=== PATIENT | female | born 1985 | race Caucasian/White ===

== ENCOUNTER → 2017-08-31 11:28 | Outpatient (CLI) | payer SELFPAY ==
[2017-09-02 13:00] LABS: HPV Reflexed? NOT INDICATED
== END ==
PROVIDERS: Visit Provider Obstetrics & Gynecology
DX: Z12.4 Encounter for screening for malignant neoplasm of cervix (principal)
CPT/HCPCS: 88175; G0145

== ENCOUNTER 2020-08-13 19:35 | Emergency (ER) | payer OTHER, SELFPAY ==
[2020-08-13 19:37] VITALS: BP 151/87; PULSE 117; RESP 18; TEMP 36.6; O2SAT 95; BMI 37.8
--- NOTE | 2020-08-13 20:21 | EDS_ITS ---
HPI History of Present Illness Chief Complaint: Abn Labs Informant: patient and spouse/S.O. Onset/Context/Timing Onset: Weeks (2) Context: Gradual Onset Timing: Continuous Quality: Weak, tired, and dizzy Location: Generalized Relieved by: Nothing Associated Symptoms Associated Symptoms: Nausea, sore throat Narrative Narrative: Patient presents with weakness and fatigue that is been getting worse over the past 2 weeks. Patient states she went to her primary care physician today who did blood work. Patient had a white blood cell count of 2.2. Patient was then referred to the emergency department. Patient has an appoint with Dr. Lui tomorrow at 3 PM. Patient states her symptoms got worse after taking a maximilk supplement to help with her . [facility] Medical History Kidney stone Home Medications Ulm492/Iron/FA/Om3/Dha/Epa 1 tab PO DAILY 02/20/13 [History Last Taken 12/09/15 20:00] Ca carb-Ca gluc-Mg ox-Mg gluco [Calcium Magnesium] 1 tab PO DAILY 08/13/20 [History Last Taken Unknown] Lactobacillus acidophilus [Probiotic] 10,000 mmu cells PO DAILY 08/13/20 [History Last Taken Unknown] Allergy/AdvReac Type Severity Reaction Status Date / Time No Known Allergies Allergy Verified 08/13/20 19:39 Surgical History History of appendectomy History of cholecystectomy Social History Smoking Status: Never smoker ROS ROS ED Constitutional Constitutional ED: Reports chills and subjective; Denies fever(s) Eyes Eyes: Denies blurry vision or change in vision ENT ENT ED: Reports sore throat; Denies rhinorrhea Cardiovascular Cardiovascular: Denies chest pain or palpitations Respiratory/Chest Respiratory/Chest: Denies cough or dyspnea Gastrointestinal Gastrointestinal: Reports nausea; Denies vomiting Genitourinary Genitourinary ED: Denies dysuria or hematuria Musculoskeletal Musculoskeletal: Reports neck pain; Denies back pain Integumentary Denies abscess or rash Neurologic Neurologic: Reports weakness; Denies headache(s) Allergic/Immunologic Allergic/Immunologic ED: Denies mouth swelling or urticaria EXAM Physical Exam Const Vital Signs: 08/13/20 19:37 08/13/20 19:58 08/13/20 22:15 Temperature 97.9 F Temperature Source Temporal Pulse Rate 117 H 110 H Respiratory Rate 18 16 Respiratory Effort Normal Non-Labored Respiratory Pattern Normal Blood Pressure 151/87 H 130/59 H Blood Pressure Mean 108 82 Pulse Ox 95 97 Oxygen Delivery Method Room Air Positive well nourished and well developed General Appearance ED: well developed Neck supple and no JVD Resp normal respiratory effort and clear to auscultation bilaterally Cardio regular rate and regular rhythm GI normal to inspection, nondistended, normoactive bowel sounds and non-tender Palpation: soft Neuro oriented x3, CN's II-XII intact bilaterally and no sensory deficits noted Sensorium / Orientation: alert Motor Exam: strength 5/5 throughout Psych mental status grossly normal MDM MDM MDM Narrative Medical decision making narrative: Comprehensive metabolic profile was obtained and was essentially within normal limits. Urinalysis does not show any evidence of urinary tract infection. Bottineau test was negative. COVID-19 rapid antigen was obtained and was negative. Influenza swabs were negative. Portable 1 view chest x-ray was obtained. On my interpretation, lung crockett are clear. There is normal cardiac silhouette. Bony thorax is normal. There is no acute process noted. Radiologist also interpreted the x-ray and agrees. Lab Data Attestation: I reviewed the patient's lab results. Labs: Laboratory Results - last 24 hr 08/13/20 08/13/20 08/13/20 20:55 20:55 21:30 Sodium 140 Potassium 3.8 Chloride 106 Carbon Dioxide 28.0 Anion Gap 6 BUN 18 Creatinine 0.76 Estim Creat Clear Calc 81.71 Est GFR (MDRD) Af Amer 112 Est GFR (MDRD) Non-Af 92 BUN/Creatinine Ratio 23.7 H Glucose 83 Calcium 9.0 Total Bilirubin 0.40 AST 39 H ALT 47 Alkaline Phosphatase 75 Total Protein 8.0 Albumin 3.7 Globulin 4.3 H Albumin/Globulin Ratio 0.9 Urine Color Yellow Urine Clarity Clear Urine pH 6.5 Ur Specific Heppner 1.010 Urine Protein 15 H Urine Glucose (UA) Normal Urine Ketones 50 H Urine Occult Blood Negative Urine Nitrite Negative Urine Bilirubin Negative Urine Urobilinogen Normal Ur Leukocyte Esterase Negative Urine RBC 0 SEEN Urine WBC 0 SEEN Ur Squamous Epith Cells 0 SEEN Urine Bacteria 0 SEEN Urine Mucus 0 SEEN Monoscreen Negative Radiography Chest X-Ray - ED: 1 View, Read by ED Physician, Read by Radiologist and Normal Diagnostic Testing: Radiology Impression Chest X-Ray 08/13/20 20:40 IMPRESSION: No radiographic evidence of acute cardiopulmonary disease. at 2059 Reported and signed by: Isaac Chamberlain MD Electronically Signed: Isaac Chamberlain MD at 20:58 EDT Tel , Service support , Discharge Plan Triage Chief Complaint: Abn Labs ED Provider: Cedric Fleming Dx/Rx/DC Orders Clinical Impression: Pancytopenia Instructions: ED Anemia, Type Not Specified (Adult) Prescriptions: No Action Fnl209/Iron/FA/Om3/Dha/Epa 1 tab PO DAILY RF: 0 Probiotic 10 billion cell Capsule 10,000 mmu cells PO DAILY RF: 0 Calcium Magnesium 500 mg calcium -250 mg Tablet 1 tab PO DAILY RF: 0 [facility] Referrals: Timothy Lui DO [STAFF PHYSICIAN] - Keep [facility] [[facility] - Disposition Disposition: Home, self care
--- NOTE | 2020-08-13 20:40 | RAD_ITS ---
HISTORY: Chills EXAMINATION/TECHNIQUE: XR Chest 1 View: Portable upright AP chest x-ray COMPARISON: None FINDINGS: LINES/DEVICES: None. LUNGS: No consolidation, edema or effusion. No pneumothorax. MEDIASTINUM AND CARDIOVASCULAR STRUCTURES: Cardiac silhouette not enlarged. Central airways and mediastinal contour are unremarkable. BONES AND SOFT TISSUES: No acute bony abnormalities. RAD/Chest 1 View (Portable) IMPRESSION: No radiographic evidence of acute cardiopulmonary disease. at 2059 Reported and signed by: Isaac Chamberlain MD Electronically Signed: Isaac Chamberlain MD at 20:58 EDT Tel , Service support ,
[2020-08-13 21:28] LABS: Internal QC Validated? YES +Cl - CLEAR BKGD; Monotest Negative (Negative)
[2020-08-13 21:34] LABS: ALB/GLOB Ratio 0.9 RATIO (0.9-2.4); AST(SGOT) 39 U/L (15-37); Alanine Aminotransfer ALT/SGPT 47 U/L (13-56); Albumin, Serum 3.7 g/dL (3.2-5.0); Alkaline Phosphatase 75 U/L (45-117); Anion Gap 6 (5-15); BUN 18 mg/dL (7-18); BUN/Creat Ratio 23.7 RATIO (10-20); Chloride 106 mmol/L (98-107); Creatinine, Serum 0.76 mg/dL (0.55-1.02); EST Glomerular Filtration Rate 92 mL/min (>60); Est Glom Filt Rate - Afr Amer 112 mL/min (>60); Estimated Creatinine Clearance 81.71 ml/min; Globulin 4.3 g/dL (2.2-4.2); Glucose 83 mg/dL (74-106); Potassium 3.8 mmol/L (3.5-5.1); Sodium Level 140 mmol/L (136-145)
[2020-08-13 21:37] LABS: Bacteria 0 SEEN /hpf (None Seen); Mucous, Urine 0 SEEN /hpf (<or=2+); Red Blood Cells-Urine 0 SEEN /hpf (0-5); Squamous Epithelial Cells - UA 0 SEEN /hpf (5-10); White Blood Cells 0 SEEN /hpf (0-5)
[2020-08-13 21:46] LABS: Color, Urine Yellow (Yellow); Glucose, Dipstick Normal (Normal); Ketone-Dipstick 50 mg/dl (Negative); Leukocyte Esterase-Dipstick Negative /ul (Negative); Nitrite-Dipstick Negative (Negative); Occult Blood-Urine Negative /ul (Negative); Protein-Dipstick 15 mg/dl (Negative); Urine Bilirubin Dipstick Negative (Negative); Urine Clarity Clear (Clear); Urine Urobilinogen Normal (Normal); Urine pH 6.5 (5.0 - 8.0)
[2020-08-13 22:15] VITALS: BP 130/59; PULSE 110; RESP 16; O2SAT 97
[2020-08-13 23:14] LABS: Hematocrit 36.1 % (37-47); Hemoglobin 11.9 g/dL (12.0-15.0); Mean Corpuscular Hgb 30.1 pg (27.0-32.0); Mean Corpuscular Volume 91.4 fL (81-99); Mean Platelet Vol. 9.5 fl (6.2-12.0); Platelet Count 108 K/mm3 (150-450); RBC Distribution Width CV 13.8 % (11.6-14.6); RBC Distribution Width SD 46.3 fl (35.1-43.9); Red Blood Count 3.95 M/mm3 (4.2-5.4)
[2020-08-13 23:15] LABS: Differential Indicated MANUAL DIFF; Metamyelocyte 1 % (0-1); Myelocyte 2 % (0-0); NRBC Flagged by Analyzer 0 % (0-5); Neutrophil-Band 2 % (0-5); Neutrophil-Segmented 39 % (47-70); POSITIVE COUNT YES; POSITIVE DIFFERENTIAL YES; POSITIVE MORPHOLOGY YES
[2020-08-13 23:16] LABS: Blast 9 % (0-0); Eosinophil 1 % (0-5); Monocyte 2 % (0-10)
[2020-08-13 23:17] LABS: Lymphocyte 44 % (19-41)
[2020-08-13 23:18] LABS: Platelet Estimate MOD DEC (ADEQ); Red Cell Morphology NORM C+C NORMAL (NORM C&C)
[2020-08-13 23:19] LABS: Absolute Lymphocyte Count 0.88 X10^3/uL (0.83-4.51); Absolute Neutrophil Count 0.8 X10^3/uL (2.0-7.7)
[2020-08-13 23:34] VITALS: BP 132/75; PULSE 112; RESP 15; O2SAT 97
[2020-08-14 14:15] LABS: Pathologist Review Reviewed
== END 2020-08-13 23:36 | disposition home or self-care (01) ==
PROVIDERS: Emergency Provider Emergency Medicine
DX: D61.818 Other pancytopenia (principal)
CPT/HCPCS: 71045; 80053; 81001; 85025; 86308; 87426; 87804; 99284; A4216

== ENCOUNTER 2020-09-29 15:00 | Inpatient (IN) | payer SELFPAY ==
[2020-09-29 15:36] VITALS: BP 106/72; PULSE 90; RESP 16; TEMP 36.7; O2SAT 98; BMI 34.0
--- NOTE | 2020-09-29 15:41 | EX.PCM.HP.RE ---
[facility] - General General Date of Admission: 09/29/20 Date of Service: 09/29/20 Chief Complaint: debility secondary to recent hemorrhagic CVA and subsequent craniotomy. HPI Narrative FAIZAN MORALES, is a 34 YO F with a PMH of obesity and nephrolithiasis who delivered a child in May of 2020. she c/o fatigue, shortness of breath and loss of appetite. Routine lab work revealed pancytopenia and 20% peripheral blasts concerning for leukemia. She was referred to Dr. Timothy Lui who referred her to [facility] for induction chemotherapy for AML. She had a Mccurdy catheter placed. On 09/06/20 she had a non-traumatic hemorrhagic CVA and had craniectomy with R temporal lobe resection and evacuation of ICH. Postoperatively she had a feeding tube but, this has been removed. She has weakness in the LUE, dysphagia and cognitive dysfunction. She was seen by PT/OT/ST post CVA and acute rehab was recommended. She was admitted to [facility] acute rehab unit on 09/29/20 for > 3 hours of therapy daily to restore function/independence to the level prior to the CVA. All paperwork from [facility] was reviewed. She had R breast pain on 09/23 and had a cardiology consult. She also had imaging of the right breast which was unremarkable. EKG showed no suspicious ischemic changes. She had a mild elevation in troponin which was thought to be likely due to anemia and demand ischemia. An limited echocardiogram was done to look at left ventricular function and the left ventricle was mildly dilated with a mildly decreased EF at 50?5%. The right ventricle was normal in size and had normal systolic function. Left ventricular function was not significantly changed from an echocardiogram done on 08/19/2020. She had loss of vision in August and was seen by an director graphics who diagnosed her with pancytopenic retinopathy. She has had BL venous US that was negative for DVT. She has not been on DVT prophylaxis due to thrombocytopenia and ICH. ST passed her for swallowing.....no MBS was sent. The PN from the leukemia service states muscular strength is equal in all extremities and no sensory deficit and on my exam upon arrival to [facility] shows Left side weakness and Left side sensory loss in the Left arm and leg. She also has a left facial droop. [facility] Medical History Kidney stone Home Medications acyclovir 400 mg PO BID 09/29/20 [History Last Taken Unknown] amlodipine 10 mg PO DAILY 09/29/20 [History Last Taken Unknown] carvedilol 25 mg PO BID 09/29/20 [History Last Taken Unknown] doxazosin 1 mg PO DAILY 09/29/20 [History Last Taken Unknown] gabapentin 300 mg PO QHS 09/29/20 [History Last Taken Unknown] lisinopril 40 mg PO DAILY 09/29/20 [History Last Taken Unknown] melatonin 3 mg PO QHS 09/29/20 [History Last Taken Unknown] midostaurin [Rydapt] 50 mg PO Q12H 09/29/20 [History Last Taken Unknown] ondansetron HCl [Zofran] 8 mg PO Q8H PRN 09/29/20 [History Last Taken Unknown] oxycodone 5 mg PO Q4H PRN 09/29/20 [History Last Taken Unknown] pantoprazole 40 mg PO BID 09/29/20 [History Last Taken Unknown] simethicone 80 mg PO TID 09/29/20 [History Last Taken Unknown] Allergy/AdvReac Type Severity Reaction Status Date / Time No Known Allergies Allergy Verified 08/13/20 19:39 Family History (Updated 09/29/20 @ 15:[address] Kaylie Howell DO) Mother Cancer Cholangiocarcinoma Hypertension Sister Cancer Leiomyosarcoma Grandfather Heart disease Uncle Cancer Hepatocellular carcinoma Grandmother Heart disease Surgical History History of appendectomy History of cholecystectomy Social History (Updated 09/29/20 @ 16:[address] Kaylie Howell DO) household members: spouse and children housing: house Smoking Status: Never smoker alcohol intake: never substance use type: does not use ROS Review of Systems ROS Unobtainable: other Details: limited due to encephalopathy and I believe a speech apraxia. was able to provide some answers to my questions. Constitutional Constitutional: Denies anorexia or chills Eyes Eyes: Reports change in vision bilateral and other Details: She is not seeing out of the R eye and tells me that everything is brown. She had no visual field cut in the left eye. Respiratory/Chest Respiratory/Chest: Denies cough or shortness of breath at rest Gastrointestinal Gastrointestinal: Reports constipation; Denies abdominal pain, nausea or vomiting Genitourinary Genitourinary: Reports other Details: urine retention Musculoskeletal Musculoskeletal: Reports muscle weakness and other Details: having spasms in the LLE ; Denies back pain Neurologic Neurologic: Reports abnormal speech, focal weakness, sensory deficit and weakness Psychiatric Psychiatric: Reports depression Hematologic/Lymphatic Hematologic/Lymphatic: Reports anemia, easy bleeding and easy bruising Vital Signs Vital Signs Vital Signs: Weight Body Mass Index (BMI) 37.8 Indicators for Scoring Admitted with or Primary Diagnosis of CVA/Stroke: Yes Hx of CVA/Stroke: Yes Modified Williams Score MRS Score at time of Evaluation: 5-Severe disability NIHSS NIHSS 1a. Level of Consciousness: Alert; keenly responsive 1b. LOC Questions: Answers neither question correctly. 1c. LOC Commands: Performs both tasks correctly. 2. Best Gaze: Normal 3. Visual: Complete hemianopia (no vision in the R eye) 4. Facial Palsy: Minor paralysis (flattened nasolabial fold, asymmetry on smiling) 5a. Left Arm: Some effort against gravity; 5b. Right Arm: No drift; arm holds 90 (or 45) degrees for full 10 seconds 6a. Left Leg: Some effort against gravity; 6b. Right Leg: No drift; leg holds 30-degree position for full 5 seconds 7. Limb Ataxia: Absent 8. Sensory: [id number] sensory loss; 9. Best Language: Severe aphasia; 10. Dysarthria: [id number]-cj-[id number] dysarthria; 11. Extinction and Inattention: No abnormality Total: 13 Physical Exam Const alert and well nourished Constitutional Narrative: ?confusion vs severe aphasia vs speech apraxia General Appearance: well developed HEENT HEENT Narrative: She has a craniectomy scar on the midline of the cerebrum and it is intact with no dehiscence and no discharge. There is no kanchan-incisional erythema or increased warmth to touch. There is a flap of bone removed from the R side of the head and there is clearly swelling of the brain present. Mouth: dry mucous membranes Eyes PERRL and EOMs intact bilaterally Eyes Narrative: No vision in the R eye. She tells me everything on the R when she closes the Left eye is brown and she is unable to make out even shapes. The sclera is anicteric and there is no conjunctival injection. Neck supple Lymph Lymphatic: no lymphadenopathy noted Resp normal respiratory effort and clear to auscultation bilaterally Cardio regular rate, regular rhythm, S1 normal heart sound, S2 normal heart sound, no murmurs, no rub and no gallops Cardio Narrative: No ectopy GI soft to palpation and non-distended GI Narrative: Normal bowel sounds. Elias catheter is present. Palpation: no hepatosplenomegaly; Negative for guarding Extremity no clubbing, cyanosis or edema Extremity Narrative: She has tenderness on the R side of the knee and there is a bruise present. No joint swelling or redness. Skin no jaundice and no petechiae Skin Narrative: many bruises which are in the healing phase......no acute bruising noted Rashes: no rashes Wounds: wounds noted Neuro Neuro Narrative: see the NIHSS scoring elsewhere in this document Psych cooperative; Negative for thought process normal Psych Narrative: Her hsuband states that she has been depressed and crying. 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 Due to recent intracerebral hemorrhage and acute myelogenous leukemia will withhold DVT prophylaxis unless she has lower extremity swelling, redness or calf pain. Follow up with leukemia service at [facility], ophthalmology, neurology, Dr. Lui and PCP following DC from [facility] AM lab including CMP, CBC, Mag and Phos Baclofen 5 mg p.o. 3 times daily for muscle spasms OxyIR 5 mg p.o. every 4 hours as needed pain 4-10 will be allowed to spend the nights with her and will allow the children to visit on Sundays. Charges/Coding Visit Charges Inpatient E&M: 61870 Init Hosp L3
--- NOTE | 2020-09-29 17:02 | NURSING ---
Patient here with on admission. Alert to self and place but has aphasia, slurred speech, with apraxia.
[2020-09-29] MEDS: oxyCODONE 5 MG Tablet PO (17:53)
--- NOTE | 2020-09-29 18:11 | REHABEVAL_ITS ---
Admission Information Primary Diagnosis:: Debility secondary to acute myelogenous leukemia and recent intracerebral hemorrhage requiring craniectomy and resection of the right temporal lobe. Status Changes from Prescreening?: No changes Identified Actual Problem List:: Bleeding, Skin Intergrity, Pain, ALteration in Cmfrt, Cognitve Impr/Memory Loss, Depression, Bowel, Constipation, Mobility Impaired, Self Care Deficit, Ineffective Communication, BP, Hypertension and Alteration- Leisure Activ. Potential Problem List:: DVT, Bleeding, Infection, UTI, Aspiration, Falls, Skin Integrity and Depression Risk of Complications DVT: LMWH and PORTIA Hose Bleeding: Monitor Lab Values, Nursing to Teach Precautions for anti-coagulation therapy., Wound, if applicable, to be assessed every shift. and Stroke patients assessed for lethargy or change in status. Infection: Clinical Staff to Monitor for S/S of infection: and S/S of infection include fever, redness, warmth, etc. Urinary Tract Infection: Monitor for frequency, burning, discomfort, or incontinence. and Nursing will obtain urine sample for urinalysis and C&S when ordered. Aspiration: Clinical staff will monitor for coughing, drooling, congestion., Speech will evaluate swallowing and dsyphasia. and Nursing will monitor patient swallowing during meals. Falls: Patient will be evaluated for Fall Precautions and Patient will be placed on Fall Precautions as indicated per protocol. Skin Breakdown: Nursing will assess skin daily using assessment tool. and Nursing will place on Skin Breakdown Precautions as indicated. Pain: Clinical staff will assess patient's pain level per protocol., Medications will be given, if needed, and the pain level reassessed. and Other methods: Massage, distraction, decrease stimulus, etc. used PRN. Plan of Care Patient requires physician specializing in physical medicine and rehab oversight to provide close medical supervision of rehab issues including: Pain Management, Sleep Problems, Bowel and Bladder, Medical and co-morbidity Management, DVT prophylaxis, Rehabilitation Leadership and Coordination of treatment team Patient needs Physical Therapy: For a minimum of 1 hour and At least 5 out of 7 days Patient needs Physical Therapy to improve:: Mobility, Strengthening, Transfers, Stretching, ROM, Endurance, Stairs, Gait and Balance Patient needs Occupational Therapy: For a minimum of 1 hour and At least 5 out of 7 days Patient needs Occupational Therapy to improve ADL's incl.: Eating, Grooming, Bathing, Dressing, Toileting, Toilet transfers, Community Reintegration, Higher functioning activities, Household tasks, Adaptive Equipment, Splinting and Other activities as determined Patient requires speech therapy: For a minimum of 1 hour and At least 5 out of 7 days Patient requires speech therapy for: Swallowing, Cognition, Language Skills and Compensatory Strategies Patient requires 24/7 Rehabilitation Nursing for: Pain Issues, Identifying and preventing risk factors, Monitoring and reporting current medical conditions, Assisting with ambulation, transfer, and all ADL's, Teaching patients about disease process and medications, Family teaching, Providing safe environment, Bowel and Bladder Issues, Skin integrity and Medication Management Patient needs Tafe Teacher/ Case Management for: Discharge Planning, Arranging Home Equipment or Services and Family Interventions Patient needs Dietary and Nutrition Services for: Adequate Nutrition, Nutritional Supplements and Nutritional Education Goals Patient will remain: free from falls and or injury at time of discharge. Patient will perform bed mobility at: MOD I level of assist. Patient will complete transfers from bed to chair at: MOD I level of assist. Patient will ambulate: 100 feet and with LRD Patient will complete upper body dressing at: MOD I level of assist. Patient will complete lower body dressing at: MOD I level of assist. Patient will complete toileting at: MOD I level of assist. Patient will perform bathing at: MOD I level of assist. Patient will complete grooming at: MOD I level of assist. Patient will complete home management skills at: MOD I level of assist. Patient will achieve: - (1 curb step) Patient will have pain level of: of 3 or less Patient's skin will: remain intact Patient will receive: adequate nutrition. Discharge Planning Pt Prognosis for Sig. Practical Improv. w/in Reasonable Time: Good Estimated Length of stay (days): 28 Anticipated D/C Destination: Home Was Preadmission Assessment Accurate?: Yes
[2020-09-29] MEDS: Baclofen 10 MG Tablet 5 MG PO ×2 (19:01→22:13)
[2020-09-29 19:30] VITALS: BP 97/57; PULSE 91; RESP 16; TEMP 37.1; O2SAT 97
[2020-09-29] MEDS: MELATONIN 3 MG TABLET PO (22:12)
[2020-09-29] MEDS: Gabapentin 300 MG Capsule PO (22:12)
[2020-09-29] MEDS: Carvedilol 25 MG Tablet PO (22:13)
[2020-09-29] MEDS: Acyclovir 200 MG Capsule 400 MG PO (22:13)
[2020-09-29] MEDS: Senna/Docusate Sodium 1 Tablet 2 TABLET PO (22:13)
[2020-09-29 23:44] LABS: Bacteria 0 SEEN /hpf (None Seen); Mucous, Urine 0 SEEN /hpf (<or=2+); Red Blood Cells-Urine 0 SEEN /hpf (0-5); Squamous Epithelial Cells - UA 0 SEEN /hpf (5-10); White Blood Cells 0 SEEN /hpf (0-5)
[2020-09-29 23:47] LABS: Color, Urine Yellow (Yellow); Glucose, Dipstick Normal (Normal); Ketone-Dipstick 5 mg/dl (Negative); Leukocyte Esterase-Dipstick Negative /ul (Negative); Nitrite-Dipstick Negative (Negative); Occult Blood-Urine Negative /ul (Negative); Protein-Dipstick 15 mg/dl (Negative); Urine Bilirubin Dipstick Negative (Negative); Urine Clarity Clear (Clear); Urine Urobilinogen Normal (Normal)
[2020-09-30 04:03] VITALS: BMI 34.0
[2020-09-30] MEDS: Baclofen 10 MG Tablet 5 MG PO ×3 (06:00→22:09)
[2020-09-30] MEDS: Pantoprazole Sodium 40 MG Tablet PO ×2 (06:00→17:40)
[2020-09-30 06:09] LABS: Hemoglobin 8.2 g/dL (12.0-15.0); Mean Corp Hgb Conc 32.8 g/dL (32-36); Mean Corpuscular Hgb 29.6 pg (27.0-32.0); Mean Corpuscular Volume 90.3 fL (81-99); Mean Platelet Vol. 9.8 fl (6.2-12.0); POSITIVE COUNT YES; POSITIVE MORPHOLOGY YES; Platelet Count 356 K/mm3 (150-450); RBC Distribution Width CV 12.8 % (11.6-14.6); RBC Distribution Width SD 40.3 fl (35.1-43.9); Red Blood Count 2.77 M/mm3 (4.2-5.4); White Blood Count 4.3 K/mm3 (4.4-11.0)
[2020-09-30 06:10] LABS: Differential Indicated MANUAL DIFF; Scan Smear per Review Criteria MANUAL DIFF
[2020-09-30 06:25] LABS: Lymphocyte 20 % (19-41); Metamyelocyte 5 % (0-1); Monocyte 10 % (0-10); Myelocyte 1 % (0-0); Neutrophil-Band 4 % (0-5); Neutrophil-Segmented 60 % (47-70); Total Cells Counted 100 (MANUAL DIFF)
[2020-09-30 06:26] LABS: Absolute Lymphocyte Count 0.86 X10^3/uL (0.83-4.51); Absolute Neutrophil Count 2.8 X10^3/uL (2.0-7.7); Platelet Estimate ADEQUATE (ADEQ); Red Cell Morphology NORM C+C NORMAL (NORM C&C)
[2020-09-30 06:37] LABS: ALB/GLOB Ratio 0.8 RATIO (0.9-2.4); AST(SGOT) 18 U/L (15-37); Alanine Aminotransfer ALT/SGPT 31 U/L (13-56); Alkaline Phosphatase 72 U/L (45-117); Anion Gap 7 (5-15); BUN 17 mg/dL (7-18); Calcium,Total 9.2 mg/dL (8.5-10.1); Chloride 106 mmol/L (98-107); Creatinine, Serum 0.55 mg/dL (0.55-1.02); EST Glomerular Filtration Rate 133 mL/min (>60); Est Glom Filt Rate - Afr Amer 161 mL/min (>60); Estimated Creatinine Clearance 112.91 ml/min; Glucose 95 mg/dL (74-106); Magnesium 2.1 mg/dL (1.6-2.6); Phosphorus 4.9 mg/dL (2.5-4.9); Potassium 3.6 mmol/L (3.5-5.1); Sodium Level 142 mmol/L (136-145)
[2020-09-30 07:30] VITALS: BP 110/60; PULSE 62; RESP 16; TEMP 36.8; O2SAT 94
[2020-09-30 10:00] VITALS: BP 110/60; BP 113/61; BP 119/60; BP 138/77; PULSE 106; PULSE 62; PULSE 78; PULSE 80; RESP 16; TEMP 36.8; O2SAT 96
--- NOTE | 2020-09-30 10:25 | NURSING ---
Addendum entered by Chely Ndiaye 09/30/20 18:49: received call from Mary Rivera pt is not to start Rydapt at this time. video conference set up for pt 10/02 @ 4538 pt and aware. Original Note: Left message for Mary Rivera at [facility] oncology to see when pt is to start Rydapt
[2020-09-30] MEDS: amLODIPine 10 MG Tablet PO (11:11)
[2020-09-30] MEDS: Lisinopril 40 MG Tablet PO (11:11)
[2020-09-30] MEDS: Carvedilol 25 MG Tablet PO ×2 (11:11→22:09)
[2020-09-30] MEDS: Doxazosin 1 MG Tablet PO (11:11)
[2020-09-30] MEDS: Acyclovir 200 MG Capsule 400 MG PO ×2 (11:12→22:10)
--- NOTE | 2020-09-30 11:41 | PCM.PN.BLA ---
Progress Note Afebrile Vital signs are stable and the blood pressure is well controlled Maintaining appropriate oxygen saturation on room air All lab was personally reviewed. The white blood cell count is 4.3 and the hemoglobin is 8.2 with platelets of 356,000. There are 5 metamyelocytes and 1 myelocyte. There were no blasts. Bone marrow just prior to discharge from [facility] was negative. CMP is remarkable for an elevated BUN/creatinine ratio at 31. UA had 0 WBCs per high-power field and 0 RBCs per high-power field. There was no bacteria. Skyla is upbeat and ready to do therapy. She denies cough, dysuria, painful swallowing, abd pain, diarrhea, nausea, CP and SOB. Physical Exam Const alert and no apparent distress General Appearance: cooperative Resp normal respiratory effort, normal air movement and clear to auscultation bilaterally Effort and Inspection: able to speak in complete sentences Cardio regular rate, regular rhythm, S1 normal heart sound, S2 normal heart sound, no murmurs and no gallops GI soft to palpation, non-tender and non-distended GI Narrative: no guarding with palpation Extremity no calf tenderness and no pedal edema Neuro Neuro Narrative: Able to tell me the month and where she is today. PERRL, EOMI. Still with poor vision due to hemorrhage into the eye due to severe thrombocytopenia. + left side weakness. Assessment & Plan Assessment/Plan (1) Debility: (2) Hemorrhagic cerebrovascular accident (CVA): (3) Status post craniectomy: (4) Retinopathy: (5) Aphasia due to acute cerebrovascular accident (CVA): (6) Apraxia of speech: (7) Left-sided muscle weakness: PLAN: 1. continue therapy 2. continue to monitor BP Visit Charges Inpatient E&M: 88653 Subs Hosp L2
[2020-09-30 12:49] LABS: Pathologist Review Reviewed
--- NOTE | 2020-09-30 12:57 | CASEMGMT ---
Social Work SW met w/pt and in room, explained that pt had been diagnosed with leukemia, went to [facility] main campus and was there for chemotherapy. While she was there she had a brain bleed, her platelets dropped. states pt almost was not here with us, but she was able to have life saving surgery, as pt's describes it. Pt had been at [facility] from August 15-September 29. Plan from here is to return home. Pt's in-laws have been staying with the children while pt has been in the hospital. Brian explains that he has been with pt every day since all of this happened with the exception of two half days. SW explained will be following along and will assist with any needed referrals for therapies and DME needs. states understanding. SERENITY Biggs
[2020-09-30 16:53] VITALS: BMI 34.0
[2020-09-30 18:00] VITALS: O2SAT 96
[2020-09-30 19:11] VITALS: BP 106/60; PULSE 87; RESP 16; TEMP 36.2; O2SAT 96
[2020-09-30] MEDS: MELATONIN 3 MG TABLET PO (22:10)
[2020-09-30] MEDS: Gabapentin 300 MG Capsule PO (22:10)
[2020-09-30] MEDS: 0.9% Saline Lock 10 ML Syringe IV (23:31)
[2020-10-01 00:32] VITALS: BMI 34.0
--- NOTE | 2020-10-01 01:37 | NURSING ---
Reviewed and agree with [employer] assessment.
[2020-10-01] MEDS: Pantoprazole Sodium 40 MG Tablet PO ×2 (06:11→16:48)
[2020-10-01] MEDS: Baclofen 10 MG Tablet 5 MG PO ×3 (06:11→21:14)
[2020-10-01 08:09] VITALS: BP 103/49; PULSE 84; RESP 16; TEMP 36.6; O2SAT 95
[2020-10-01 09:36] VITALS: BP 115/72; PULSE 90
[2020-10-01] MEDS: Doxazosin 1 MG Tablet PO (09:36)
[2020-10-01] MEDS: Lisinopril 40 MG Tablet PO (09:36)
[2020-10-01] MEDS: Carvedilol 25 MG Tablet PO ×2 (09:36→21:14)
[2020-10-01] MEDS: amLODIPine 10 MG Tablet PO (09:36)
[2020-10-01] MEDS: Acyclovir 200 MG Capsule 400 MG PO ×2 (09:39→21:15)
[2020-10-01] MEDS: Clotrimazole 10 MG Troche MUCOUS MEM ×3 (14:49→21:14)
[2020-10-01 16:04] VITALS: BMI 34.0
--- NOTE | 2020-10-01 16:37 | CHAPLAIN ---
Type of Pastoral Visit _x__ Initial Visit ___ Follow-up Visit ___ On-call Visit ___ General Patient Visit ___ Spiritual Assessment ___ Family Conference ___ Bereavement ___ Rapid Response ___ Code Blue ___ Other (describe below) Pastoral Care Referral From _x__ Patient _x__ Family ___ Nurse ___ Physician ___ Landfill Gas Collection Operator ___ Heater Helper Forge ___ Other (describe below) Sacrament/Intervention _x__ Active listening ___ Anointing ___ Restorationism ___ Bereavement ___ Communion _x__ Desiree exploration ___ ___ Life review _x__ Prayer ___ Reconciliation ___ Sacrament of Sick _x__ Supportive presence ___ Wedding ___ Other (describe below) Pastoral Comments spouse and another family member were with patient; spouse talked to this batch operator while visitor interacted with patient most of the time; spouse gives health history and updates; pt has literally had miracles when doctor in [facility] said it was time to accept her (September 05) but instead has great turn around according to spouse; pt is making good strides already in therapy; pt and spouse both state that the goal is to see their five young children soon and as much as possible; spouse states that desiree in God and the help of their [employer] have been sustaining them in these days; pt and spouse welcome spiritual care support and prayers; future visits are encouraged
[2020-10-01 19:11] VITALS: BP 109/62; PULSE 84; RESP 14; TEMP 36.6; O2SAT 98
[2020-10-01] MEDS: MELATONIN 3 MG TABLET PO (21:14)
[2020-10-01] MEDS: Gabapentin 300 MG Capsule PO (21:15)
[2020-10-01] MEDS: 0.9% Saline Lock 10 ML Syringe IV (22:40)
--- NOTE | 2020-10-02 01:26 | NURSING ---
Reviewed and agree with ELECTRIC SHOVEL OPERATOR assessment.
[2020-10-02 02:21] VITALS: BMI 34.0
[2020-10-02] MEDS: Acetaminophen 325 MG Tablet 650 MG PO (04:15)
[2020-10-02] MEDS: Clotrimazole 10 MG Troche MUCOUS MEM ×5 (06:50→21:51)
[2020-10-02] MEDS: Baclofen 10 MG Tablet 5 MG PO ×3 (06:50→21:51)
[2020-10-02] MEDS: Pantoprazole Sodium 40 MG Tablet PO ×2 (06:50→17:03)
[2020-10-02 08:50] VITALS: PULSE 75; RESP 14; TEMP 36.1; O2SAT 97
--- NOTE | 2020-10-02 09:50 | CASEMGMT ---
Social Work Team meeting held. Patient present as well as patient spouse. No discharge date set at this time. Patient to continue with further care and treatment on the Rehab Unit. Patient plans to discharge to home with spouse at time of discharge. Will continue to follow. Nara PALACIOS, SERENITY
[2020-10-02] MEDS: Carvedilol 25 MG Tablet PO ×2 (10:49→21:50)
[2020-10-02] MEDS: amLODIPine 10 MG Tablet PO (10:49)
[2020-10-02] MEDS: Doxazosin 1 MG Tablet PO (10:49)
[2020-10-02] MEDS: Lisinopril 40 MG Tablet PO (10:50)
[2020-10-02] MEDS: Acyclovir 200 MG Capsule 400 MG PO ×2 (10:50→21:52)
--- NOTE | 2020-10-02 12:06 | PN_ITS ---
Progress Note Zenia Abbott was seen on TEAM rounds today. Her Rosendo was present in the room. She remains afebrile VSS She is not tachypneic and she is maintaining appropriate oxygen saturation on RA. She is eating well and family has been bringing food from home Physical Exam Const alert and well nourished Constitutional Narrative: she is upbeat and is talking a lot with the team and her General Appearance: well developed Eyes PERRL and EOMs intact bilaterally Eyes Narrative: still having decreased visual acuity Neck supple Resp normal respiratory effort and clear to auscultation bilaterally Cardio regular rate, regular rhythm, S1 normal heart sound, S2 normal heart sound, no murmurs, no rub and no gallops Cardio Narrative: No ectopy GI soft to palpation and non-distended GI Narrative: Normal bowel sounds. Gao catheter is present. Palpation: Negative for guarding Extremity no calf tenderness and no pedal edema Extremity Narrative: She has tenderness on the R side of the knee and there is a bruise present. No joint swelling or redness. Skin Skin Narrative: many bruises which are in the healing phase......no acute bruising noted General Skin Exam: no breakdown Rashes: no rashes Wounds: wounds noted Wound Narrative: The incision on the skull is intact with no dehiscence, no purulent discharge, no serosanguineous discharge, no erythema and no increased warmth to touch. Neuro Neuro Narrative: Still with aphasia and speech apraxia. Left facial droop. Persistent weakness on the left side but, she is moving that side better than at admission. Today she was able to ambulate 20 ft from her room to the therapy room with a WW and then ambulated 65 ft once and shorter distances a few times after that. She was able to do 2 steps. She is very motivated to get better and go home. Psych cooperative Psych Narrative: smiling and very talkative with the staff. Sleeping well. 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 Voiding trial today. If she still retains urine will reinsert the gao and start Flomax. 2. continue therapy. 3. will check a CMP once a week and a CBC twice a week and send the results to the leukemia service at [facility]. 4. Will allow her children to visit twice a week and I feel this is necessary to help with depression and improve her state of mind. Family wanted to take her home for a few hours but this is not possible because she would need to go by ambulance and the ambulance would not be able to stay there until she was ready to come back. I encouraged them to have immediate family come to the hospital and we could take Zenia Abbott outside in a WC to visit BUT, everyone must wear a mask because no one has been vaccinated. Visit Charges Inpatient E&M: 31959 Subs Hosp L2
[2020-10-02 17:00] VITALS: BMI 34.0
[2020-10-02 19:40] VITALS: BP 110/56; PULSE 88; RESP 17; TEMP 36.5; O2SAT 96
[2020-10-02] MEDS: Gabapentin 300 MG Capsule PO (21:51)
[2020-10-02] MEDS: MELATONIN 3 MG TABLET PO (21:51)
[2020-10-02] MEDS: Senna/Docusate Sodium 1 Tablet 2 TABLET PO (21:56)
[2020-10-02] MEDS: 0.9% Saline Lock 10 ML Syringe IV (22:20)
[2020-10-03 02:09] VITALS: BMI 34.0
--- NOTE | 2020-10-03 02:40 | NURSING ---
REVIEWED AND AGREE WITH CORROSION PREVENTION METAL SPRAYER'S FUNCTIONAL ASSESSMENT AND HANDOFF CHARTING.
[2020-10-03] MEDS: Baclofen 10 MG Tablet 5 MG PO ×3 (05:47→22:41)
[2020-10-03] MEDS: Clotrimazole 10 MG Troche MUCOUS MEM ×5 (05:48→22:41)
[2020-10-03] MEDS: Pantoprazole Sodium 40 MG Tablet PO ×2 (05:48→16:42)
[2020-10-03 05:58] LABS: Absolute Lymphocyte Count 0.83 X10^3/uL (0.83-4.51); Basophil# 0.04 X10^3/uL; Basophil% 0.7 % (0-1); Hematocrit 25.2 % (37-47); Hemoglobin 8.1 g/dL (12.0-15.0); Lymphocyte # 0.83 X10^3/ul (0.83-4.51); Lymphocyte % 13.8 % (19-41); Mean Corp Hgb Conc 32.1 g/dL (32-36); Mean Corpuscular Hgb 29.6 pg (27.0-32.0); Mean Platelet Vol. 10.1 fl (6.2-12.0); Monocyte# 1.03 X10^3/uL; Monocyte% 17.1 % (0-10); NRBC Flagged by Analyzer 0.3 % (0-5); Neutrophil # 3.98 X10^3/uL (2.7-7.7); Neutrophil % 65.9 % (47-70); Platelet Count 454 K/mm3 (150-450); RBC Distribution Width CV 13.3 % (11.6-14.6); RBC Distribution Width SD 41.8 fl (35.1-43.9); Red Blood Count 2.74 M/mm3 (4.2-5.4)
[2020-10-03] MEDS: amLODIPine 10 MG Tablet PO (08:11)
[2020-10-03] MEDS: Doxazosin 1 MG Tablet PO (08:11)
[2020-10-03] MEDS: Carvedilol 25 MG Tablet PO ×2 (08:11→22:40)
[2020-10-03] MEDS: Lisinopril 40 MG Tablet PO (08:11)
[2020-10-03] MEDS: Acyclovir 200 MG Capsule 400 MG PO ×2 (08:12→22:41)
[2020-10-03 09:41] VITALS: BP 100/59; PULSE 85; RESP 16; TEMP 36.8; O2SAT 94
[2020-10-03 17:00] VITALS: BMI 34.0
[2020-10-03 22:00] VITALS: BP 114/56; PULSE 86; RESP 16; TEMP 37.1; O2SAT 98; BMI 34.0
[2020-10-03] MEDS: MELATONIN 3 MG TABLET PO (22:40)
[2020-10-03] MEDS: Senna/Docusate Sodium 1 Tablet 2 TABLET PO (22:41)
[2020-10-03] MEDS: Gabapentin 300 MG Capsule PO (22:41)
[2020-10-03] MEDS: 0.9% Saline Lock 10 ML Syringe IV (23:05)
[2020-10-04] MEDS: oxyCODONE 5 MG Tablet PO ×3 (01:19→21:19)
--- NOTE | 2020-10-04 01:33 | NURSING ---
spouse rings and pt is noted to be incontinent of urine and reports that she has a headache a
--- NOTE | 2020-10-04 01:34 | NURSING ---
spouse rings and reports that pt is incontinent of urine a lg amt and also reports that she has a headache a 5\10 on the pain scale. pt changed and repositioned in the bed and bladder scan completed with a value of 61cc . staff also medicated pt with oxyir 5mg as per order for headache. cool wash cloth also applied for comfort . will continue to monitor pt for pain.
--- NOTE | 2020-10-04 04:01 | NURSING ---
REVIEWED AND AGREE WITH ROOFING SUPERVISOR'S FUNCTIONAL ASSESSMENT AND HANDOFF CHARTING.
[2020-10-04] MEDS: Baclofen 10 MG Tablet 5 MG PO ×3 (05:56→21:22)
[2020-10-04] MEDS: Clotrimazole 10 MG Troche MUCOUS MEM ×5 (05:56→21:21)
--- NOTE | 2020-10-04 06:40 | NURSING ---
PT STRAIGHT CATHED WITHOUT DIFFICULTY FOR URINE SPECIMEN. 200ML OF CLOUDY, YELLOW, FOUL SMELLING URINE DRAINED FROM PT'S BLADDER. PT TOLERATES PROCEDURE WELL.BLADDER SCAN AFTER CATHING PT IS FOR PVR OF 61 ML.
[2020-10-04] MEDS: Acetaminophen 325 MG Tablet 650 MG PO ×2 (07:06→16:21)
[2020-10-04] MEDS: Pantoprazole Sodium 40 MG Tablet PO ×2 (07:06→16:12)
[2020-10-04] MEDS: Magnesium Hydroxide 30 ML UDC PO (07:07)
[2020-10-04 07:52] VITALS: BP 90/49; PULSE 80; RESP 18; TEMP 37; O2SAT 93
[2020-10-04] MEDS: Senna/Docusate Sodium 1 Tablet 2 TABLET PO ×2 (07:59→21:20)
[2020-10-04] MEDS: Acyclovir 200 MG Capsule 400 MG PO ×2 (08:00→21:19)
[2020-10-04] MEDS: Carvedilol 25 MG Tablet PO ×2 (08:00→21:21)
[2020-10-04] MEDS: Lisinopril 40 MG Tablet PO (08:01)
[2020-10-04] MEDS: Doxazosin 1 MG Tablet PO (08:01)
[2020-10-04] MEDS: amLODIPine 10 MG Tablet PO ×2 (08:02→11:03)
[2020-10-04 08:45] VITALS: BP 110/66
[2020-10-04 14:34] VITALS: BMI 34.0
[2020-10-04 15:30] LABS: Mucous, Urine 0 SEEN /hpf (<or=2+); Red Blood Cells-Urine 0 SEEN /hpf (0-5); Squamous Epithelial Cells - UA 0 SEEN /hpf (5-10)
[2020-10-04 15:34] LABS: Color, Urine Yellow (Yellow); Glucose, Dipstick Normal (Normal); Ketone-Dipstick Negative (Negative); Leukocyte Esterase-Dipstick 500 /ul (Negative); Nitrite-Dipstick Positive (Negative); Occult Blood-Urine 25 /ul (Negative); Protein-Dipstick 30 mg/dl (Negative); Specific Gravity, Urine 1.015 (1.002-1.030); Urine Bilirubin Dipstick Negative (Negative); Urine Clarity Sl. Cloudy (Clear); Urine Urobilinogen Normal (Normal)
[2020-10-04 15:47] LABS: Bacteria 1+ /hpf (None Seen); White Blood Cells 10-25 SEEN /hpf (0-5)
[2020-10-04] MEDS: Bisacodyl 10 MG Suppository RC (16:33)
[2020-10-04 19:26] VITALS: BP 110/69; PULSE 83; RESP 16; TEMP 36.6; O2SAT 94
[2020-10-04] MEDS: MELATONIN 3 MG TABLET PO (21:21)
[2020-10-04] MEDS: Gabapentin 300 MG Capsule PO (21:21)
[2020-10-04] MEDS: Cefadroxil 500 MG CAPSULE 1000 MG PO (21:21)
[2020-10-04] MEDS: 0.9% Saline Lock 10 ML Syringe IV (21:42)
[2020-10-04 22:00] VITALS: PULSE 83; RESP 16; O2SAT 96
[2020-10-04 22:11] VITALS: BMI 34.0
[2020-10-05] MEDS: Baclofen 10 MG Tablet 5 MG PO ×3 (06:00→21:44)
[2020-10-05] MEDS: Clotrimazole 10 MG Troche MUCOUS MEM ×5 (06:00→21:43)
[2020-10-05] MEDS: Pantoprazole Sodium 40 MG Tablet PO ×2 (06:00→19:10)
[2020-10-05 07:35] VITALS: BP 104/56; PULSE 84; RESP 16; TEMP 36.6; O2SAT 97
[2020-10-05] MEDS: Cefadroxil 500 MG CAPSULE 1000 MG PO ×2 (09:08→21:42)
[2020-10-05] MEDS: Carvedilol 25 MG Tablet PO ×2 (09:08→21:42)
[2020-10-05] MEDS: Lisinopril 40 MG Tablet PO (09:09)
[2020-10-05] MEDS: Acyclovir 200 MG Capsule 400 MG PO ×2 (09:09→21:43)
[2020-10-05] MEDS: Senna/Docusate Sodium 1 Tablet 2 TABLET PO ×2 (09:09→21:44)
[2020-10-05] MEDS: amLODIPine 10 MG Tablet PO (09:09)
--- NOTE | 2020-10-05 15:00 | NURSING ---
ARDEN with approved in w/c ambulette. In good spirits.
[2020-10-05 15:07] VITALS: BMI 34.0
[2020-10-05 21:30] VITALS: BP 106/61; PULSE 86; RESP 16; TEMP 36.8; O2SAT 96; BMI 34.0
[2020-10-05] MEDS: Gabapentin 300 MG Capsule PO (21:43)
[2020-10-05] MEDS: MELATONIN 3 MG TABLET PO (21:43)
[2020-10-05] MEDS: 0.9% Saline Lock 10 ML Syringe IV (21:48)
--- NOTE | 2020-10-06 04:29 | NURSING ---
Reviewed and agree with BUDDHIST MONK assessment and handoff.
[2020-10-06] MEDS: Clotrimazole 10 MG Troche MUCOUS MEM ×5 (06:28→21:18)
[2020-10-06] MEDS: Baclofen 10 MG Tablet 5 MG PO ×3 (06:28→21:17)
[2020-10-06] MEDS: Pantoprazole Sodium 40 MG Tablet PO ×2 (06:28→16:26)
[2020-10-06 08:23] VITALS: BP 103/48; PULSE 83; RESP 16; TEMP 36.9; O2SAT 95
[2020-10-06] MEDS: Carvedilol 25 MG Tablet PO ×2 (09:47→21:16)
[2020-10-06] MEDS: Lisinopril 40 MG Tablet PO (09:47)
[2020-10-06] MEDS: Cefadroxil 500 MG CAPSULE 1000 MG PO ×2 (09:47→21:17)
[2020-10-06] MEDS: amLODIPine 10 MG Tablet PO (09:47)
[2020-10-06] MEDS: Acyclovir 200 MG Capsule 400 MG PO ×2 (09:48→21:19)
[2020-10-06 11:15] VITALS: BMI 34.0
[2020-10-06] MEDS: 0.9% Saline Lock 10 ML Syringe IV ×2 (18:11→21:58)
[2020-10-06 19:08] VITALS: BP 97/60; PULSE 90; RESP 16; TEMP 36.7; O2SAT 97
[2020-10-06] MEDS: MELATONIN 3 MG TABLET PO (21:18)
[2020-10-06] MEDS: Gabapentin 300 MG Capsule PO (21:18)
[2020-10-06] MEDS: Senna/Docusate Sodium 1 Tablet 2 TABLET PO (21:19)
[2020-10-06 21:20] VITALS: BP 106/65; PULSE 87
[2020-10-06] MEDS: Acetaminophen 325 MG Tablet 650 MG PO (21:34)
[2020-10-06] MEDS: oxyCODONE 5 MG Tablet PO (21:55)
[2020-10-07 04:06] VITALS: BMI 34.0
[2020-10-07] MEDS: Clotrimazole 10 MG Troche MUCOUS MEM ×4 (05:34→20:27)
[2020-10-07] MEDS: Baclofen 10 MG Tablet 5 MG PO ×3 (05:34→20:27)
[2020-10-07] MEDS: Pantoprazole Sodium 40 MG Tablet PO ×2 (05:35→17:00)
[2020-10-07] MEDS: oxyCODONE 5 MG Tablet PO (05:37)
[2020-10-07] MEDS: Acetaminophen 325 MG Tablet 650 MG PO ×2 (05:38→13:14)
[2020-10-07] MEDS: 0.9% Saline Lock 10 ML Syringe IV ×2 (07:17→20:56)
[2020-10-07 07:42] LABS: Absolute Lymphocyte Count 0.88 X10^3/uL (0.83-4.51); Absolute Neutrophil Count 3.6 X10^3/uL (2.0-7.7); Basophil# 0.05 X10^3/uL; Basophil% 0.9 % (0-1); Hematocrit 24.7 % (37-47); Hemoglobin 7.9 g/dL (12.0-15.0); Lymphocyte # 0.88 X10^3/ul (0.83-4.51); Lymphocyte % 15.2 % (19-41); Mean Corpuscular Hgb 29.9 pg (27.0-32.0); Mean Corpuscular Volume 93.6 fL (81-99); Mean Platelet Vol. 9.6 fl (6.2-12.0); Monocyte# 1.02 X10^3/uL; Monocyte% 17.6 % (0-10); NRBC Flagged by Analyzer 0 % (0-5); Neutrophil # 3.57 X10^3/uL (2.7-7.7); Neutrophil % 61.8 % (47-70); Platelet Count 459 K/mm3 (150-450); RBC Distribution Width CV 14.5 % (11.6-14.6); RBC Distribution Width SD 44.4 fl (35.1-43.9); Red Blood Count 2.64 M/mm3 (4.2-5.4); White Blood Count 5.8 K/mm3 (4.4-11.0)
[2020-10-07 07:56] VITALS: BP 98/42; PULSE 79; RESP 18; TEMP 36.6; O2SAT 97
[2020-10-07 08:10] LABS: ALB/GLOB Ratio 0.7 RATIO (0.9-2.4); AST(SGOT) 13 U/L (15-37); Alanine Aminotransfer ALT/SGPT 21 U/L (13-56); Albumin, Serum 2.9 g/dL (3.2-5.0); Alkaline Phosphatase 69 U/L (45-117); Anion Gap 4 (5-15); BUN 8 mg/dL (7-18); BUN/Creat Ratio 13.6 RATIO (10-20); Calcium,Total 9.2 mg/dL (8.5-10.1); Chloride 107 mmol/L (98-107); Creatinine, Serum 0.59 mg/dL (0.55-1.02); EST Glomerular Filtration Rate 123 mL/min (>60); Est Glom Filt Rate - Afr Amer 149 mL/min (>60); Estimated Creatinine Clearance 105.26 ml/min; Globulin 4.1 g/dL (2.2-4.2); Glucose 93 mg/dL (74-106); Potassium 3.7 mmol/L (3.5-5.1); Sodium Level 140 mmol/L (136-145)
[2020-10-07] MEDS: Carvedilol 25 MG Tablet PO ×2 (10:53→20:34)
[2020-10-07] MEDS: Cefadroxil 500 MG CAPSULE 1000 MG PO ×2 (10:53→20:26)
[2020-10-07] MEDS: Lisinopril 40 MG Tablet PO (10:54)
[2020-10-07] MEDS: Acyclovir 200 MG Capsule 400 MG PO ×2 (10:54→20:29)
[2020-10-07 14:12] VITALS: BMI 34.0
[2020-10-07 19:26] VITALS: BP 114/66; PULSE 71; RESP 16; TEMP 36.8; O2SAT 95
[2020-10-07] MEDS: Gabapentin 300 MG Capsule PO (20:27)
[2020-10-07] MEDS: MELATONIN 3 MG TABLET PO (20:27)
[2020-10-07] MEDS: Senna/Docusate Sodium 1 Tablet 2 TABLET PO (20:28)
[2020-10-07 23:24] VITALS: BMI 34.0
[2020-10-08] MEDS: Baclofen 10 MG Tablet 5 MG PO ×3 (05:22→22:37)
[2020-10-08] MEDS: Pantoprazole Sodium 40 MG Tablet PO ×2 (05:23→15:07)
[2020-10-08] MEDS: Clotrimazole 10 MG Troche MUCOUS MEM ×4 (05:23→22:43)
[2020-10-08 07:29] VITALS: BP 112/61; PULSE 82; RESP 16; TEMP 37; O2SAT 95
[2020-10-08] MEDS: Senna/Docusate Sodium 1 Tablet 2 TABLET PO ×2 (10:04→22:42)
[2020-10-08] MEDS: Cefadroxil 500 MG CAPSULE 1000 MG PO ×2 (10:04→22:38)
[2020-10-08] MEDS: Carvedilol 25 MG Tablet PO ×2 (10:04→22:38)
[2020-10-08] MEDS: Acyclovir 200 MG Capsule 400 MG PO ×2 (10:05→22:42)
[2020-10-08] MEDS: Lisinopril 40 MG Tablet PO (10:05)
--- NOTE | 2020-10-08 13:34 | PN_ITS ---
Progress Note Afebrile VSS - Amlodipine is on hold due to low blood pressures Maintaining appropriate oxygen saturation on RA Good bowel function Sleeping well. Eating well. No ST, cough, SOB, CP, diarrhea, abd pain. Denies lightheadedness. Physical Exam Const alert, oriented x3 and no apparent distress General Appearance: cooperative Eyes EOMs intact bilaterally Resp normal respiratory effort, normal air movement and clear to auscultation bilaterally Cardio regular rate, regular rhythm and no gallops GI soft to palpation, non-tender and non-distended GI Narrative: No guarding with palpation, normal bowel sounds Extremity no calf tenderness and no pedal edema Skin General Skin Exam: no breakdown Rashes: no rashes Neuro Neuro Narrative: Persistent left facial droop but much less than at admission. Persistent left-sided weakness but she is able to ambulate now and moves her left leg forward without assistance. She is using a wheeled walker for ambu lation. No loss of balance today.No seizure activity. Psych Psych Narrative: She is very pleasant and talkative. She makes good eye contact and she is laughing with the staff. No signs of significant depression today. 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 No one has been vaccinated and we can not put other patients at risk. She will need to be quarantined for the next 10 days. They are both okay with this. We will continue therapy. Continue to monitor blood pressure closely. I suspect her stress level has gone down and she may no longer need his many antihypertensives. Visit Charges Inpatient E&M: 27654 Subs Hosp L2
[2020-10-08 13:55] VITALS: BMI 34.0
--- NOTE | 2020-10-08 16:55 | CHAPLAIN ---
Type of Pastoral Visit ___ Initial Visit _x__ Follow-up Visit ___ On-call Visit ___ General Patient Visit ___ Spiritual Assessment ___ Family Conference ___ Bereavement ___ Rapid Response ___ Code Blue ___ Other (describe below) Pastoral Care Referral From ___ Patient _x__ Family ___ Nurse ___ Physician ___ Air Traffic Control Specialist ___ Cause Analyst ___ Other (describe below) Sacrament/Intervention _x__ Active listening ___ Anointing ___ Methodist ___ Bereavement ___ Communion _x__ Desiree exploration ___ _x__ Life review _x__ Prayer ___ Reconciliation ___ Sacrament of Sick _x__ Supportive presence ___ Wedding ___ Other (describe below) Pastoral Comments patient is eager to talk and states several times that she wants visits and wants to communicate with people; spouse is with her in room; pt recounts some of the events in the hospital, her encounters with her children after a long absence, her desiree in God which has gotten stronger, and her irma at the progress in therapy; pt wants prayer support and visits to continue
[2020-10-08 22:00] VITALS: BP 110/59; PULSE 80; RESP 16; TEMP 36.9; O2SAT 95
[2020-10-08 22:03] VITALS: BMI 34.0
[2020-10-08] MEDS: 0.9% Saline Lock 10 ML Syringe IV (22:41)
[2020-10-08] MEDS: MELATONIN 3 MG TABLET PO (22:43)
[2020-10-08] MEDS: Gabapentin 300 MG Capsule PO (22:43)
[2020-10-09] MEDS: Baclofen 10 MG Tablet 5 MG PO ×3 (06:19→21:48)
[2020-10-09] MEDS: Pantoprazole Sodium 40 MG Tablet PO ×2 (06:20→15:48)
[2020-10-09] MEDS: Clotrimazole 10 MG Troche MUCOUS MEM ×5 (06:20→21:48)
--- NOTE | 2020-10-09 09:00 | CASEMGMT ---
Social Work Team meeting held. Patient present as well as patient spouse. Team collaborating with patient and patient family. Plan is for patient to discharge to home with spouse on 10/12/2020. Patient spouse reports to be able to obtain all needed DME (walker and shower chair). Patient spouse request for list of skilled home health companies to be able to contact in regards to private pay as patient does not have insurance. This social services provided patient spouse with skilled home health care list. Patient spouse plans to set up home health care and will let team know if there are any issues. Patient spouse also reports to be able to set up transportation for patient to return to home. Patient and patient spouse deny any needs or concerns. Proposed discharge date: 10/12/2020 Disposition: Home with spouse. Nara PALACIOS, SERENITY
[2020-10-09 09:02] VITALS: BP 118/62; PULSE 81; RESP 16; TEMP 36.8; O2SAT 95
[2020-10-09] MEDS: Cefadroxil 500 MG CAPSULE 1000 MG PO ×2 (10:18→21:47)
[2020-10-09] MEDS: Carvedilol 25 MG Tablet PO ×2 (10:18→21:47)
[2020-10-09] MEDS: Senna/Docusate Sodium 1 Tablet 2 TABLET PO (10:19)
[2020-10-09] MEDS: Acyclovir 200 MG Capsule 400 MG PO ×2 (10:19→21:48)
[2020-10-09] MEDS: Lisinopril 40 MG Tablet PO (10:19)
[2020-10-09 10:47] VITALS: BP 106/70; BP 111/53; BP 126/70; PULSE 108; PULSE 81; PULSE 86
[2020-10-09 13:50] VITALS: BMI 34.0
--- NOTE | 2020-10-09 14:14 | PN_ITS ---
Progress Note Day #5 cefadroxil for E. coli UTI Day 8 clotrimazole for thrush-denies odontophagia Zenia Abbott was seen on team rounds today and her Rosendo was present in the room for rounds. Afebrile VSS-blood pressures have been better with discontinuation of amlodipine and she denies lightheadedness. The blood pressure did not change significantly with orthostatic vital signs however the heart rate did increase greater than 20 bpm when going from sitting to standing. Maintaining appropriate oxygen saturation on RA Intake and output are not accurate because Skyla went home yesterday for a few hours and this is not included in the accounting for the rehab unit. Discussed with nursing - no problems that need addressed. Reviewed the PT/OT/ST notes Medication list reviewed. She is doing very well with therapy. He speech is much more fluid and she is getting better with circumlocution. She was able to name all her children yesterday and say their ages. She is sleeping well. She is eating better. Denies cephalgia, cough, shortness of breath, dysuria. No nausea, vomiting, abdominal pain, diarrhea, constipation. Physical Exam Const alert and no apparent distress Constitutional Narrative: appears comfortable and she is smiling and talkative. General Appearance: cooperative HEENT HEENT Narrative: the thrush is much imroved and the coating on the tongue is gone. No buccal lesions. Eyes PERRL Eyes Narrative: still c/o blurry vision but it has improved somewhat Neck supple Resp normal respiratory effort, normal air movement, no use of accessory muscles and clear to auscultation bilaterally Effort and Inspection: able to speak in complete sentences Cardio regular rate, regular rhythm, S1 normal heart sound, S2 normal heart sound and no gallops Peripheral Pulses: pulses 2+ throughout GI soft to palpation, non-tender and non-distended GI Narrative: no guarding with palpation and she has normal BS's in all quadrants Extremity no calf tenderness and no pedal edema Skin Skin Narrative: the craniotomy incision is intact and there is no dehiscence and no periincisional erythema or discharge. General Skin Exam: no breakdown Rashes: no rashes Neuro Neuro Narrative: She has left facial weakness affecting the entire left face. the droop of the left corner of the mouth is improving. She still has speech apraxia and aphasia. the speech is getting more fluent. there is persistent Left hemiparesis but strength has improved and she is able to lift her L arm above her head now. she is able to feel me touch the L arm and leg now. She was able to ambulate 165 feet with a wheeled walker today. She also ambulated 50 feet x 1 and 100 feet x 1 with a straight cane at contact-guard assist/min assist. Wires minimal assistance with bathing and upper body dressing but moderate assistance with lower body dressing. She required standby assist only for going from a seated position to standing with a wheeled walker. she has been making steady progress and she is anxious to get home to her babies. 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 Start to taper the Gabapentin and the Baclofen. 2. Mycelex and Cefadroxil will be done on Tuesday. 3. she rarely takes a Oxycodone and is usually taking Tylenol if she has pain. 4. CBC and diff in the AM 5. I went over all the medications and what they are used for with Rosendo 6. I discussed getting a COVID vaccine with Rosendo and answered his questions. He understands that Zenia Abbott's immune system is compromised and he is considering. I also recommended any children 12 or older should be vaccinated. I recommended that no one who is sick with a fever or a cough be allowed to be in contact with her and everyone she comes into contact with outside of the immediate family should be wearing a mask. She has a phone conference with her leukemia doctor at [facility] tomorrow. 7. Would like to discharge on Tuesday to home. Rosendo discussed what equipment they will need at home with Jayesh zaman. Visit Charges Inpatient E&M: 25378 Subs Hosp L2
--- NOTE | 2020-10-09 17:48 | PCM.PN.BLA ---
Progress Note this is a late entry for 10/05/20. The EMR was down and I was unable to chart on her that day. Afebrile VSS but the BP is on the low side. Will make adjustments to the antihypertensive regimen. She is maintaining good oxygen saturation on RA. Denies cephalgia, cough, shortness of breath, sore throat, painful mouth or painful swallowing, calf pain, nausea/vomiting, diarrhea, abdominal pain, chills. She has some dysuria and the UA from yesterday has pyuria and she was started on an antibiotic. Urine culture is pending Physical Exam Const alert and no apparent distress Resp normal respiratory effort, normal air movement, no use of accessory muscles and clear to auscultation bilaterally Cardio regular rate, regular rhythm, S1 normal heart sound, S2 normal heart sound and no gallops GI soft to palpation, non-tender and non-distended GI Narrative: No guarding with palpation Extremity Extremity Narrative: No edema, no cyanosis, negative Homans and negative Aaron. Skin General Skin Exam: no breakdown Rashes: no rashes Trauma: other The craniotomy incision is intact with no erythema, no discharge and no pain with palpation. Neuro Neuro Narrative: Less facial droop today. The left arm and left leg are getting stronger with less drift. 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 Continue therapy 2. Hold amlodipine and continue to monitor the blood pressure 3. CBC and CMP tomorrow Visit Charges Inpatient E&M: 29989 Subs Hosp L2
[2020-10-09 20:05] VITALS: BP 114/54; PULSE 81; RESP 16; TEMP 36.9; O2SAT 97
[2020-10-09 21:05] VITALS: BMI 34.0
[2020-10-09] MEDS: 0.9% Saline Lock 10 ML Syringe IV (21:46)
[2020-10-09] MEDS: Gabapentin 100 MG Capsule 200 MG PO (21:48)
[2020-10-09] MEDS: MELATONIN 3 MG TABLET PO (21:48)
[2020-10-09 22:00] VITALS: PULSE 81; RESP 16; O2SAT 96
[2020-10-10] MEDS: 0.9% Saline Lock 10 ML Syringe IV ×3 (05:09→21:37)
[2020-10-10 05:39] LABS: Hematocrit 24.6 % (37-47); Hemoglobin 7.9 g/dL (12.0-15.0); Mean Corp Hgb Conc 32.1 g/dL (32-36); Mean Corpuscular Hgb 30.2 pg (27.0-32.0); Mean Corpuscular Volume 93.9 fL (81-99); Mean Platelet Vol. 9.5 fl (6.2-12.0); POSITIVE COUNT YES; POSITIVE MORPHOLOGY YES; Platelet Count 369 K/mm3 (150-450); RBC Distribution Width CV 14.8 % (11.6-14.6); RBC Distribution Width SD 46.7 fl (35.1-43.9); Red Blood Count 2.62 M/mm3 (4.2-5.4); White Blood Count 6.8 K/mm3 (4.4-11.0)
[2020-10-10 05:40] LABS: Differential Indicated MANUAL DIFF
[2020-10-10] MEDS: Clotrimazole 10 MG Troche MUCOUS MEM ×5 (05:43→21:25)
[2020-10-10 06:37] LABS: Anisocytosis 1+; Lymphocyte 21 % (19-41); Metamyelocyte 1 % (0-1); Monocyte 11 % (0-10); Myelocyte 4 % (0-0); Neutrophil-Segmented 63 % (47-70); Platelet Estimate ADEQUATE (ADEQ); Polychromasia RARE; Total Cells Counted 100 (MANUAL DIFF)
[2020-10-10 06:38] LABS: Absolute Neutrophil Count 4.3 X10^3/uL (2.0-7.7); Microcytosis 1+; Neutrophil # 4.29 X10^3/uL (2.7-7.7)
[2020-10-10 06:39] LABS: Absolute Lymphocyte Count 1.43 X10^3/uL (0.83-4.51); Lymphocyte # 1.43 X10^3/ul (0.83-4.51)
[2020-10-10 07:24] VITALS: BP 110/46; PULSE 66; RESP 16; TEMP 36.7; O2SAT 94
[2020-10-10] MEDS: Carvedilol 25 MG Tablet PO ×2 (10:39→21:25)
[2020-10-10 10:40] LABS: Pathologist Review Reviewed
[2020-10-10] MEDS: Baclofen 10 MG Tablet 5 MG PO ×2 (10:40→21:27)
[2020-10-10] MEDS: Cefadroxil 500 MG CAPSULE 1000 MG PO ×2 (10:40→21:28)
[2020-10-10] MEDS: Acyclovir 200 MG Capsule 400 MG PO ×2 (10:41→21:24)
[2020-10-10] MEDS: Lisinopril 40 MG Tablet PO (10:41)
[2020-10-10] MEDS: Pantoprazole Sodium 40 MG Tablet PO (10:41)
[2020-10-10 14:24] VITALS: BMI 34.0
--- NOTE | 2020-10-10 16:04 | CASEMGMT ---
Social Work SW met with pt Brian to discuss d/c. Brian would like skilled home health services for pt, SN/OT/PT/ST. Brian is aware services are private pay. Pt preferred provider is 1. [facility] 2. [facility] 3. [facility] 4. [facility]. Referral to [facility] and they are able to accept pt however they do not have ST. Referral to [facility] and they are able to accept pt and have all disciplines needed. CHEIKH explained this to Brian and he would like to go with [facility]. Peterson of each visit given to Brian and he is understanding and agreeable. Start of care is 10/14/20. No further d/c needs. Discharge Date: 10/12/20 Discharge Disposition: Home with spouse, [facility] PT/OT/ST/SN. arranging for needed DME RHONA Maurice
[2020-10-10 19:05] VITALS: BP 132/84; PULSE 72; RESP 18; TEMP 36.6; O2SAT 95
[2020-10-10 21:15] VITALS: BMI 34.0
[2020-10-10] MEDS: oxyCODONE 5 MG Tablet PO (21:23)
[2020-10-10] MEDS: Gabapentin 100 MG Capsule 200 MG PO (21:25)
[2020-10-10] MEDS: MELATONIN 3 MG TABLET PO (21:26)
[2020-10-10 22:00] VITALS: PULSE 78; RESP 16; O2SAT 96
[2020-10-11] MEDS: Clotrimazole 10 MG Troche MUCOUS MEM ×2 (06:21→09:40)
[2020-10-11 07:30] VITALS: BP 122/73; PULSE 73; RESP 16; TEMP 36.6; O2SAT 97
[2020-10-11] MEDS: Acyclovir 200 MG Capsule 400 MG PO ×2 (09:39→21:32)
[2020-10-11] MEDS: Cefadroxil 500 MG CAPSULE 1000 MG PO (09:39)
[2020-10-11] MEDS: Lisinopril 40 MG Tablet PO (09:39)
[2020-10-11] MEDS: Baclofen 10 MG Tablet 5 MG PO ×2 (09:39→21:30)
[2020-10-11] MEDS: Pantoprazole Sodium 40 MG Tablet PO (09:39)
[2020-10-11] MEDS: Carvedilol 25 MG Tablet PO ×2 (09:40→21:30)
[2020-10-11 09:56] VITALS: BMI 34.0
[2020-10-11 19:27] VITALS: BP 120/79; PULSE 79; RESP 16; TEMP 36.5; O2SAT 98
[2020-10-11] MEDS: Senna/Docusate Sodium 1 Tablet 2 TABLET PO (21:31)
[2020-10-11] MEDS: Gabapentin 100 MG Capsule 200 MG PO (21:31)
[2020-10-11] MEDS: MELATONIN 3 MG TABLET PO (21:31)
[2020-10-11] MEDS: Acetaminophen 325 MG Tablet 650 MG PO (21:32)
[2020-10-12 01:20] VITALS: BMI 34.0
--- NOTE | 2020-10-12 05:27 | NURSING ---
REVIEWED AND AGREE WITH CHIEF DIETITIAN'S FUNCTIONAL ASSESSMENT AND HANDOFF CHARTING.
[2020-10-12 10:00] VITALS: BP 121/71; PULSE 79; RESP 16; TEMP 36.3; O2SAT 100
[2020-10-12] MEDS: Baclofen 10 MG Tablet 5 MG PO (10:13)
[2020-10-12] MEDS: Carvedilol 25 MG Tablet PO (10:13)
--- NOTE | 2020-10-12 10:13 | DCINST_ITS ---
Discharge Instructions Diet Discharge Diet: Low fat / Low cholesterol and 4000 mg Sodium Diet Activity Discharge Activity: May Not Drive and Use Walker Lifting Restrictions: no lifting more than 5 lbs Additional Activity Instructions:: Wear your helmet anytime you are out of bed to protect the brain until you get the bone flap replaced. Dressing / Incision Call your doctor if your incision/area has: Continuous Slow Oozing, Sudden Increased Bleeding, Increased Pain/ Swelling, Increased Redness, Foul Smelling Discharge and Swelling at the incision site Call your doctor if you observe: Fever of 101 or Higher, Inability to urinate, Inability to have a bowel movement, Shortness of breath, Dizziness, Fainting spells, Swelling in the ankles, Chest pain, Increased palpitations (irregular heartbeat), Calf discomfort and Uncontrolled pain Cleanse incision/area with: Soap & Water Additional Dressing/Incision Instructions:: You do not have to apply a dressing to the scalp incision. Follow Up Care Please Follow Up With: Ct scan Test Results: Test results from this visit will be discussed in further detail at your follow-up appointment, if applicable. Pending Tests Upon Discharge: none Discharge Plan Admission Admit Date/Time: 09/29/20 15:00 Primary Reason for Your Visit: Debility secondary to hemorrhagic CVA with craniotomy Attending Provider: Kaylie Howell [facility] Additional Instructions / Restrictions: [facility] PT/OT/ST/SN 1. Home Health care should be drawing blood for a CBC with diff every Tuesday and and a CMP once a week on Tuesday. 2. I have been weaning the Gabapentin(pain control), Baclofen(muscle relaxer) and Simethicone(bowel gas) down. I think Zenia Abbott may no longer need these medications so I only gave you 1-2 weeks worth. She can take them as instructed. 3. She must wear the helmet anytime she is out of bed to protect the brain until the bone flap is replaced. 4. It is VERY IMPORTANT to keep Zenia Abbott away from sick people. Her immune system does not work properly because of the leukemia and she will be very susceptible to infection if she is around anyone who is sick. You should check Zenia Abbott's temperature at least twice a day and if the temp is greater than or equal to 100.4 F then you should call the leukemia team for advice. 5. Zenia has been through a lot and her brain and body are trying to heal themselves. She must not overdo. she needs plenty of rest but, it is also important to do some exercise 1-2 times a day. Do the exercises given to you by the therapists at rehab on the days you do not get home health therapy. 6. You have a wonderful loving family and I wish you continued good health. It has been a pleasure to meet you and I will keep you in my prayers. If you have any questions after you leave please call me. I will be out of the office until Tuesday but, you can call on my cell phone. Stay well! Office [phone] Discharge Orders/Prescriptions Prescriptions: New gabapentin 100 mg Capsule 100 mg PO QHS Qty: 21 RF: 0 simethicone [Mi-Acid Gas Relief(simethicon)] 80 mg Tablet,Chewable 80 mg PO TID PRN PRN (Reason: gas) Qty: 30 RF: 0 acetaminophen [Tylenol] 325 mg Tablet 650 mg PO Q6H PRN PRN (Reason: Pain Score 1-10) Qty: 0 RF: 0 baclofen 10 mg Tablet 5 mg PO Q8H PRN PRN (Reason: muscles spasms) Qty: 14 RF: 0 clotrimazole 10 mg gabino 10 mg mucous membrane TID Qty: 21 RF: 0 Continued carvedilol 25 mg Tablet 25 mg PO BID Qty: 60 RF: 0 ondansetron HCl 8 mg Tablet 8 mg PO Q8H PRN (Reason: Nausea) Qty: 28 RF: 0 melatonin 3 mg Tablet 3 mg PO QHS Qty: 30 RF: 0 acyclovir 400 mg Tablet 400 mg PO BID Qty: 60 RF: 0 amlodipine 10 mg Tablet 10 mg PO DAILY Qty: 30 RF: 0 lisinopril 40 mg Tablet 40 mg PO DAILY Qty: 30 RF: 0 oxycodone 5 mg Tablet 5 mg PO Q4H PRN (Reason: Pain 4-10) 7 Days Qty: 28 RF: 0 Rydapt 25 mg Capsule 50 mg PO Q12H Qty: 0 RF: 0 Changed pantoprazole 40 mg Tablet,Delayed Release (Dr/Ec) 40 mg PO DAILY Qty: 0 RF: 0 Discontinued doxazosin 1 mg Tablet 1 mg PO DAILY RF: 0 gabapentin 300 mg Tablet 300 mg PO QHS RF: 0 simethicone 80 mg Tablet 80 mg PO TID RF: 0 [facility] Provider[facility] - Disposition Disposition (needs filled in before D/C Order can be placed): Home Health Service
[2020-10-12] MEDS: Acyclovir 200 MG Capsule 400 MG PO (10:14)
[2020-10-12] MEDS: Lisinopril 40 MG Tablet PO (10:14)
[2020-10-12] MEDS: Pantoprazole Sodium 40 MG Tablet PO (10:14)
--- NOTE | 2020-10-12 11:14 | DS.PCM_ITS ---
Providers Date of Admission: 09/29/20 Primary Care Physician: [facility] Reason For Visit: STROKE Diagnosis Discharge Diagnosis (1) Debility: Status: Acute Code(s): R53.81 - Other malaise (2) Hemorrhagic cerebrovascular accident (CVA): Status: Acute Code(s): I61.9 - Nontraumatic intracerebral hemorrhage, unspecified (3) Status post craniectomy: Status: Acute Code(s): Z98.890 - Other specified postprocedural states (4) Left-sided muscle weakness: Status: Acute Code(s): M62.81 - Muscle weakness (generalized) (5) Apraxia of speech: Status: Acute Code(s): R48.2 - Apraxia (6) Aphasia as late effect of cerebrovascular accident: Status: Acute Code(s): I69.320 - Aphasia following cerebral infarction (7) Dysphagia: Status: Acute Code(s): R13.10 - Dysphagia, unspecified Qualifiers: Dysphagia type: oropharyngeal phase Qualified Code(s): R13.12 - Dysphagia, oropharyngeal phase (8) Left sided numbness: Status: Acute Code(s): R20.0 - Anesthesia of skin (9) HTN (hypertension): Status: Chronic Code(s): I10 - Essential (primary) hypertension Qualifiers: Hypertension type: primary hypertension Qualified Code(s): I10 - Essential (primary) hypertension (10) Acute myelogenous leukemia: Status: Acute Code(s): C92.00 - Acute myeloblastic leukemia, not having achieved remission Qualifiers: Leukemia Active/Remission status: in remission Qualified Code(s): C92.01 - Acute myeloblastic leukemia, in remission (11) Vision loss of right eye: Status: Acute Code(s): H54.61 - Unqualified visual loss, right eye, normal vision left eye (12) Retinopathy: Status: Acute Code(s): H35.00 - Unspecified background retinopathy Plan: DC to Home with [facility]. She will follow up with the leukemia service at [facility] and with her PCP. She will be getting a CBC with diff twice a week on Mondays and and a CMP weekly on Tuesday. The results should be sent to the Leukemia service at [facility] [place]. Medications at Discharge Home Medications Rydapt 50 mg PO Q12H #0 cap 10/12/20 acetaminophen [Tylenol] 650 mg PO Q6H PRN PRN #0 tab 10/12/20 acyclovir 400 mg PO BID #60 tab 10/12/20 amlodipine 10 mg PO DAILY #30 tab 10/12/20 baclofen 5 mg PO Q8H PRN PRN #14 tab 10/12/20 carvedilol 25 mg PO BID #60 tab 10/12/20 clotrimazole 10 mg MUCOUS MEMBRANE TID #21 tab 10/12/20 gabapentin 100 mg PO QHS #21 cap 10/12/20 lisinopril 40 mg PO DAILY #30 tab 10/12/20 melatonin 3 mg PO QHS #30 tab 10/12/20 ondansetron HCl 8 mg PO Q8H PRN #28 tab 10/12/20 oxycodone 5 mg PO Q4H PRN 7 Days #28 tab 10/12/20 pantoprazole 40 mg PO DAILY #0 tab 10/12/20 simethicone [Mi-Acid Gas Relief(simethicon)] 80 mg PO TID PRN PRN #30 tab 10/12/20 Hospital Course Operations None Procedures None Summary of Care Provided Minutes Spent on Discharge: 45 Hospital Course: ZENIA MORALES, is a 34 YO F with a PMH of obesity and nephrolithiasis who delivered a child in May of 2020. she c/o fatigue, shortness of breath and loss of appetite. Routine lab work revealed pancytopenia and 20% peripheral blasts concerning for leukemia. She was referred to Dr. Timothy Lui who referred her to [facility] for induction chemotherapy for AML. She had a Mccurdy catheter placed. On 09/06/20 she had a non-traumatic hemorrhagic CVA and had craniectomy with R temporal lobe resection and evacuation of ICH. Postoperatively she had a feeding tube but, this was removed prior to transfer to in rehab. She had weakness and numbness on the left side, dysphagia, aphasia and cognitive dysfunction. She was seen by PT/OT/ST post CVA and acute rehab was recommended. She was admitted to [facility] acute rehab unit on 09/29/20 for > 3 hours of therapy daily to restore function/independence to the level prior to the CVA. 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 She has very minimal vision in the R eye. While in rehab she had a weekly CMP and a CBCD every Tuesday and . The white blood cell count on 09/30/2020 was 4.3 and prior to discharge the white blood cell count was 6.8. Hemoglobin at presentation was 8.2 and prior to discharge it is stable at 7.9. I suspect the drop in hemoglobin is due to better hydration. Platelet count at admission was 356,000 and at discharge was stable at 369,000. The BUN/creatinine ratio at admission was elevated at 23.7) to discharge it is down to 13.6. Creatinine is stable at 0.59. Electrolytes are normal. LFTs are unremarkable. Skyla developed a urinary tract infection and UA done on 10/04/2020 showed 10-25 WBCs per high-power field and was positive for nitrites. The culture grew E. coli and Klebsiella pneumoniae and both were sensitive to cephalosporins. She was treated with a 7-day course of cefadroxil 1 g p.o. twice daily. She was asymptomatic prior to discharge. Zenia Abbott was afebrile for the duration of her stay in rehab. Zenia Abbott did very well in therapy and worked hard so that she can return home to her 5 children. The MRS came down from 5 at admission to a 4 at discharge. Prior to discharge she had ambulated 165 feet with a wheeled walker with obstacle negotiation and turns at contact-guard assist. She ambulated up to 100 feet with a straight cane at min assist. She was steady throughout ambulation with no loss of balance. She was min assist/standby assist for trans fers and bed mobility. She was contact-guard assist/standby assist for standing from various surfaces. She was able to ascend/descend 5 steps with 2 handrails at contact-guard assist. She was supervision/set up for eating and contact- guard assist for grooming. She required minimal assistance with bathing, LB dressing and upper body dressing. She is contact guard assist for toilet transfer. Zenia Abbott was discharged on 10/12/20 to home. [facility] was arranged by the and she will have PT/OT/ST/RN. Her [employer] was arranging for DME. [facility] will draw lab for a CBCD twice a week on Mondays and and a CMP every Tuesday. On the date of discharge the temp was 97.4 with a heart rate of 79 and a blood pressure of 121/71. Oxygen saturation on room air was 100% with a respiratory rate of 14. She will follow up with the Leukemia service at [facility]. [employer] was directed to call the Leukemia service contact on Tuesday10/13/20 and ask if the Rydapt should be continued. She did not receive this medication while on rehab. She will also FU with PCP. Physical Exam Const alert, no apparent distress and well nourished Constitutional Narrative: Appears comfortable and she is smiling and talkative. She denies cephalgia. General Appearance: cooperative and well developed HEENT HEENT Narrative: The tongue still has a strip of coating down the center ans she is requesting more Mycelex troches. she denies mouth pain and pain with swallowing. the thrush likely recurred due to the Cefadroxil prescriber for UTI. Mouth: dry mucous membranes Eyes PERRL and EOMs intact bilaterally Eyes Narrative: Still unable to see with the R eye except for a small rim of vision in the lateral periphery. Vision is better in the L eye. Neck no lymphadenopathy, supple and no JVD General: trachea midline Resp normal respiratory effort, normal air movement, no use of accessory muscles and clear to auscultation bilaterally Resp Narrative: She was instructed to continue using the IS at home. I instructed Zenia Abbott and Ros[employer] once again today in proper use. Effort and Inspection: able to speak in complete sentences Cardio regular rate, regular rhythm, S1 normal heart sound, S2 normal heart sound, no murmurs, no rub and no gallops Cardio Narrative: No ectopy Peripheral Pulses: pulses 2+ throughout GI soft to palpation, non-tender and non-distended GI Narrative: No guarding with palpation and she has normal BS's in all quadrants Palpation: guarding and no hepatosplenomegaly Extremity no clubbing, cyanosis or edema, no calf tenderness and no pedal edema Extremity Narrative: The left leg feels funny....I suspect this is because the numbness has improved and she can now feel that the left leg is different than the right since the stroke. Skin no jaundice and no petechiae Skin Narrative: The craniotomy incision is intact and there is no dehiscence and no kanchan-incisional erythema or discharge. Hair is growing over the incision now. General Skin Exam: no breakdown Rashes: no rashes Wounds: wounds noted Wound Narrative: The incision on the skull is intact with no dehiscence, no purulent discharge, no serosanguineous discharge, no erythema and no increased warmth to touch. Neuro Neuro Narrative: The left facial droop is much better and the L eye has less lid lag. Tongue protrudes on the midline. There is trace of drift with the LUE and also with the LLE but, neither the arm or the leg touches the bed. Intact sensation throughout now. No ataxia. Speech is much better and she is using circumlocution with better success. Psych cooperative; Negative for thought process normal Psych Narrative: She has been tearful at times but, she and Rosendo work through this. She is very upbeat today and looking forward to getting home. She feels much better and feels that the cancer is gone and she will be fine. She is sleeping well and making good eye contact. she is smiling a lot and is talkative. Weight / BMI Weight Weight: 178 lb 2.136 oz Body Mass Index (BMI) 34.0 ABG / Lab / Microbiology Data Result Diagrams: 10/10/20 05:20 10/07/20 07:20 Microbiology: Microbiology 10/04/20 06:40 Urine Catheter - Catheter Urine Culture - Final Escherichia coli Klebsiella pneumoniae sp pneum D/C Instructions Discharge Diet: Low fat / Low cholesterol and 4000 mg Sodium Diet Additional Activity Instructions: Wear your helmet anytime you are out of bed to protect the brain until you get the bone flap replaced. Call your doctor if your incision/area has: Continuous Slow Oozing, Sudden Increased Bleeding, Increased Pain/ Swelling, Increased Redness, Foul Smelling Discharge and Swelling at the incision site Call your doctor if you observe: Fever of 101 or Higher, Inability to urinate, Inability to have a bowel movement, Shortness of breath, Dizziness, Fainting spells, Swelling in the ankles, Chest pain, Increased palpitations (irregular heartbeat), Calf discomfort and Uncontrolled pain Cleanse incision/area with: Soap & Water Additional Dressing/Incision Instructions: You do not have to apply a dressing to the scalp incision. Please Follow Up With: Ct scan Meaningful Use Info Meaningful Use Diagnoses (Choose all that apply): Hemorrhagic CVA CVA Therapy Assessed for PT,OT and/or ST?: Yes Discharge Plan Admission Admit Date/Time: 09/29/20 15:00 Primary Reason for Your Visit: Debility secondary to hemorrhagic CVA with craniotomy Attending Provider: Kaylie Howell [facility] Inst[facility] Additional Instructions / Restrictions: [facility] PT/OT/ST/SN 1. Home Health care should be drawing blood for a CBC with diff every Tuesday and and a CMP once a week on Tuesday. 2. I have been weaning the Gabapentin(pain control), Baclofen(muscle relaxer) and Simethicone(bowel gas) down. I think Zenia Abbott may no longer need these medications so I only gave you 1-2 weeks worth. She can take them as instructed. 3. She must wear the helmet anytime she is out of bed to protect the brain until the bone flap is replaced. 4. It is VERY IMPORTANT to keep Zenia Abbott away from sick people. Her immune system does not work properly because of the leukemia and she will be very susceptible to infection if she is around anyone who is sick. You should check Zenia Abbott's temperature at least twice a day and if the temp is greater than or equal to 100.4 F then you should call the leukemia team for advice. 5. Zenia has been through a lot and her brain and body are trying to heal themselves. She must not overdo. she needs plenty of rest but, it is also important to do some exercise 1-2 times a day. Do the exercises given to you by the therapists at rehab on the days you do not get home health therapy. 6. You have a wonderful loving family and I wish you continued good health. It has been a pleasure to meet you and I will keep you in my prayers. If you have any questions after you leave please call me. I will be out of the office until Tuesday but, you can call on my cell phone. Stay well! Office [phone] Discharge Orders/Prescriptions Prescriptions: New gabapentin 100 mg Capsule 100 mg PO QHS Qty: 21 RF: 0 simethicone [Mi-Acid Gas Relief(simethicon)] 80 mg Tablet,Chewable 80 mg PO TID PRN PRN (Reason: gas) Qty: 30 RF: 0 acetaminophen [Tylenol] 325 mg Tablet 650 mg PO Q6H PRN PRN (Reason: Pain Score 1-10) Qty: 0 RF: 0 baclofen 10 mg Tablet 5 mg PO Q8H PRN PRN (Reason: muscles spasms) Qty: 14 RF: 0 clotrimazole 10 mg gabino 10 mg mucous membrane TID Qty: 21 RF: 0 Continued carvedilol 25 mg Tablet 25 mg PO BID Qty: 60 RF: 0 ondansetron HCl 8 mg Tablet 8 mg PO Q8H PRN (Reason: Nausea) Qty: 28 RF: 0 melatonin 3 mg Tablet 3 mg PO QHS Qty: 30 RF: 0 acyclovir 400 mg Tablet 400 mg PO BID Qty: 60 RF: 0 amlodipine 10 mg Tablet 10 mg PO DAILY Qty: 30 RF: 0 lisinopril 40 mg Tablet 40 mg PO DAILY Qty: 30 RF: 0 oxycodone 5 mg Tablet 5 mg PO Q4H PRN (Reason: Pain 4-10) 7 Days Qty: 28 RF: 0 Rydapt 25 mg Capsule 50 mg PO Q12H Qty: 0 RF: 0 Changed pantoprazole 40 mg Tablet,Delayed Release (Dr/Ec) 40 mg PO DAILY Qty: 0 RF: 0 Discontinued doxazosin 1 mg Tablet 1 mg PO DAILY RF: 0 gabapentin 300 mg Tablet 300 mg PO QHS RF: 0 simethicone 80 mg Tablet 80 mg PO TID RF: 0 [facility] - Disposition Disposition (needs filled in before D/C Order can be placed): Home Health Service Charges/Coding Visit Charges Inpatient E&M: 16161 Disch Hosp
[2020-10-12 13:59] VITALS: BMI 34.0
[2020-10-12 14:00] VITALS: BP 121/71; PULSE 79; RESP 16; TEMP 36.3; O2SAT 100
--- NOTE | 2020-10-12 14:07 | NURSING ---
and patient verbalized discharge instructions. aware to go to [facility] for a blood pressure cuff and prescriptions and to [facility] for the normal saline flush syringes. demonstrating with aseptic technique proper flushing of the triple lumen Mccurdy catheter.
== END 2020-10-12 14:05 | disposition home health service (06) | DRG 57 ==
PROVIDERS: Admitting Provider Internal Medicine; Visit Provider Internal Medicine
DX: I69.354 Hemiplegia and hemiparesis following cerebral infarction affecting left non-dominant side (principal); D61.818 Other pancytopenia; N39.0 Urinary tract infection, site not specified; B37.0 Candidal stomatitis; C92.01 Acute myeloblastic leukemia, in remission; I69.391 Dysphagia following cerebral infarction; I69.319 Unspecified symptoms and signs involving cognitive functions following cerebral infarction; I69.320 Aphasia following cerebral infarction; I69.392 Facial weakness following cerebral infarction; I69.322 Dysarthria following cerebral infarction; E66.9 Obesity, unspecified; R48.2 Apraxia; I10 Essential (primary) hypertension; H54.61 Unqualified visual loss, right eye, normal vision left eye; B96.20 Unspecified Escherichia coli [E. coli] as the cause of diseases classified elsewhere; R13.12 Dysphagia, oropharyngeal phase; H35.00 Unspecified background retinopathy; Z79.899 Other long term (current) drug therapy; Z68.37 Body mass index [BMI] 37.0-37.9, adult; I69.398 Other sequelae of cerebral infarction; R20.0 Anesthesia of skin
CPT/HCPCS: 80053; 81001; 83735; 84100; 85025; 87077; 87086; 87088; 87186; 92507; 92523; 92526; 92610; 97110; 97112; 97116; 97162; 97166; 97530; 97535; 97802; 97803; 99251; A4216; G0463

== ENCOUNTER 2020-10-23 15:30 | Outpatient (RCR) | payer OTHER, SELFPAY ==
[2020-10-20 12:10] LABS: Absolute Lymphocyte Count 0.85 X10^3/uL (0.83-4.51); Absolute Neutrophil Count 4.3 X10^3/uL (2.0-7.7); Basophil# 0.05 X10^3/uL; Basophil% 0.8 % (0-1); Eosinophil# 0.03 X10^3/uL; Eosinophils% 0.5 % (0-5); Hematocrit 27.8 % (37-47); Hemoglobin 8.7 g/dL (12.0-15.0); Lymphocyte # 0.85 X10^3/ul (0.83-4.51); Lymphocyte % 14.1 % (19-41); Mean Corp Hgb Conc 31.3 g/dL (32-36); Mean Corpuscular Hgb 29.8 pg (27.0-32.0); Mean Corpuscular Volume 95.2 fL (81-99); Mean Platelet Vol. 10.2 fl (6.2-12.0); Monocyte# 0.75 X10^3/uL; Monocyte% 12.4 % (0-10); NRBC Flagged by Analyzer 0 % (0-5); Neutrophil % 71.2 % (47-70); Platelet Count 249 K/mm3 (150-450); RBC Distribution Width CV 16.1 % (11.6-14.6); RBC Distribution Width SD 55.5 fl (35.1-43.9); Red Blood Count 2.92 M/mm3 (4.2-5.4)
[2020-10-20 12:47] LABS: ALB/GLOB Ratio 0.7 RATIO (0.9-2.4); AST(SGOT) 11 U/L (15-37); Alanine Aminotransfer ALT/SGPT 22 U/L (13-56); Albumin, Serum 3.2 g/dL (3.2-5.0); Alkaline Phosphatase 82 U/L (45-117); Anion Gap 10 (5-15); BUN 5 mg/dL (7-18); BUN/Creat Ratio 9.9 RATIO (10-20); Calcium,Total 9.5 mg/dL (8.5-10.1); Chloride 103 mmol/L (98-107); EST Glomerular Filtration Rate 148 mL/min (>60); Est Glom Filt Rate - Afr Amer 178 mL/min (>60); Globulin 4.4 g/dL (2.2-4.2); Glucose 79 mg/dL (74-106); Potassium 3.6 mmol/L (3.5-5.1); Protein, Total 7.6 g/dL (6.4-8.2); Sodium Level 139 mmol/L (136-145)
[2020-10-23 16:23] LABS: Hematocrit 27.4 % (37-47); Hemoglobin 8.5 g/dL (12.0-15.0); Mean Corpuscular Volume 96.8 fL (81-99); Mean Platelet Vol. 10.1 fl (6.2-12.0); Platelet Count 293 K/mm3 (150-450); RBC Distribution Width CV 16.5 % (11.6-14.6); Red Blood Count 2.83 M/mm3 (4.2-5.4); White Blood Count 5.8 K/mm3 (4.4-11.0)
== END 2020-10-23 18:00 | disposition home or self-care (01) ==
LOC: HHLAB 15:30
PROVIDERS: Referring Provider Nurse Practitioner Family; Visit Provider Nurse Practitioner Family
DX: C92.00 Acute myeloblastic leukemia, not having achieved remission (principal)
CPT/HCPCS: 80053; 85025; 85027

== ENCOUNTER 2020-10-27 18:20 | Emergency (ER) | payer OTHER, SELFPAY ==
[2020-10-27] VITALS (7 sets, daily range): BP systolic 126–129; BP diastolic 53–99; PULSE 75–88; RESP 15–16; TEMP 36.6; O2SAT 97–99; BMI 26.6
--- NOTE | 2020-10-27 18:23 | NURSING ---
STROKE ALERT CALLED
--- NOTE | 2020-10-27 18:29 | EKG12_ITS ---
Test Reason : STROKE Blood Pressure : / mmHG Vent. Rate : 082 BPM Atrial Rate : 082 BPM P-R Int : 144 ms QRS Dur : 090 ms QT Int : 382 ms P-R-T Axes : 027 012 -04 degrees QTc Int : 446 ms Normal sinus rhythm Inferior infarct , age undetermined Abnormal ECG Confirmed by BELÉN QUINONEZ, STEVE ([id number]), media librarian JOSELO LARIOS ([id number]) on 10/30/2020 9:59:37 AM Referred By: PL Confirmed By:STEVE MELISSA MD
--- NOTE | 2020-10-27 18:29 | CT_ITS ---
We are attempting to reach an attending provider to discuss findings. An addendum with communication details will be sent when the communication is complete. EXAM: CT HEAD WITHOUT INTRAVENOUS CONTRAST : 1985 CLINICAL INDICATION: Neuro deficit, acute, stroke suspected TECHNIQUE: Multiple axial images were obtained of the head without intravenous contrast. This CT exam was performed using one or more of the following dose reduction techniques: automated exposure control, adjustment of the mA and/or kV according to patient size, and/or use of iterative reconstruction technique. This report was created using [employer] technology. COMPARISON: None. FINDINGS: BRAIN AND EXTRA-AXIAL SPACES: There is mixed density in the posterior right temporal lobe with areas of high and low-density. Is uncertain whether this infarct with normal postsurgical postsurgical change. The possibility of tiny punctate hemorrhages cannot be excluded. No intracranial mass or mass effect. Posterior fossa structures are unremarkable. Ventricles are appropriate for age. No hydrocephalus. Basal cisterns are patent. BONES/JOINTS: There are postsurgical changes from a right frontal craniectomy. No discrete lytic or blastic abnormalities. SINUSES: Unremarkable as visualized. Clear. MASTOID AIR CELLS: Unremarkable. Clear. ORBITS: Visualized globes, extraocular muscles, optic nerves and retrobulbar fat appear unremarkable. CT/STROKE Brain/Head without Cont IMPRESSION: Postsurgical changes from a right frontal craniectomy. There are punctate foci creased density in the posterior right temporal lobe as well as areas of decreased density. Is uncertain whether these are tiny punctate hemorrhages normal brain with associated infarct. Further evaluation with MRI may be beneficial. Individualized dose optimization techniques were used for this CT. at 1843 Reported and signed by: Johnson Ambrocio MD Electronically Signed: Johnson Ambrocio MD at 18:42 EDT Tel , Service support ,
--- NOTE | 2020-10-27 18:30 | EDS_ITS ---
HPI History of Present Illness Chief Complaint: Numb/Ting Informant: patient and spouse/S.O. Narrative Narrative: Patient states that about 5:00 today she had a little bit of tingling in her left arm that is better. She also had a little bit of trouble stating the words that she wanted. It is doing better now. No headache. Patient's had complex issue recently. She was diagnosed with lymphoma. She was at [facility]. She was being treated. She had low platelets. This caused a intracranial bleed. She went for a craniotomy on approximately 05 September. This was done in a last ditch to save her life. She has had some neurologic symptoms from this. She has some facial asymmetry which is chronic also. However, she did have some increase in her symptomatology today. She is weaning her gabapentin at this time 2. Prior similar symptoms: Yes Recent Illness/Hospitalization: Yes [facility] Medical History Cancer Kidney stone Stroke/cerebrovascular accident Vision loss of left eye Vision loss of right eye Home Medications Rydapt 50 mg PO Q12H #0 cap 10/12/20 [Rx Last Taken Unknown] acetaminophen [Tylenol] 650 mg PO Q6H PRN PRN #0 tab 10/12/20 [Rx Last Taken Unknown] acyclovir 400 mg PO BID #60 tab 10/12/20 [Rx Last Taken Unknown] baclofen 5 mg PO Q8H PRN PRN #14 tab 10/12/20 [Rx Last Taken Unknown] carvedilol 25 mg PO BID #60 tab 10/12/20 [Rx Last Taken Unknown] clotrimazole 10 mg MUCOUS MEMBRANE TID #21 tab 10/12/20 [Rx Last Taken Unknown] gabapentin 100 mg PO QHS #21 cap 10/12/20 [Rx Last Taken Unknown] lisinopril 40 mg PO DAILY #30 tab 10/12/20 [Rx Last Taken Unknown] melatonin 3 mg PO QHS #30 tab 10/12/20 [Rx Last Taken Unknown] ondansetron HCl 8 mg PO Q8H PRN #28 tab 10/12/20 [Rx Last Taken Unknown] oxycodone 5 mg PO Q4H PRN 7 Days #28 tab 10/12/20 [Rx Last Taken Unknown] pantoprazole 40 mg PO DAILY #0 tab 10/12/20 [Rx Last Taken Unknown] simethicone [Mi-Acid Gas Relief(simethicon)] 80 mg PO TID PRN PRN #30 tab 10/12/20 [Rx Last Taken Unknown] Allergy/AdvReac Type Severity Reaction Status Date / Time No Known Allergies Allergy Verified 10/27/20 18:30 Family History Mother Cancer Cholangiocarcinoma Hypertension Sister Cancer Leiomyosarcoma Grandfather Heart disease Uncle Cancer Hepatocellular carcinoma Grandmother Heart disease Surgical History History of appendectomy History of cholecystectomy Social History household members: spouse and children housing: house Smoking Status: Never smoker alcohol intake: never substance use type: does not use ROS ROS ED Constitutional Constitutional ED: Denies chills or fever(s) Eyes Eyes: Reports change in vision and other Details: Change in vision since surgery. Cardiovascular Cardiovascular: Denies chest pain Respiratory/Chest Respiratory/Chest: Denies cough or dyspnea Gastrointestinal Gastrointestinal: Denies nausea or vomiting Musculoskeletal Musculoskeletal: Denies neck pain Integumentary Denies rash Neurologic Neurologic: Reports other Details: See history of present illness. ; Denies headache(s) Hematologic/Lymphatic Hematologic/Lymphatic: Reports other Details: She did have a history of thrombocytopenia but it sounds like that had resolved. That may have been related to chemotherapy. ; Denies easy bleeding or easy bruising Allergic/Immunologic Allergic/Immunologic ED: Denies urticaria EXAM Physical Exam Narrative Exam Narrative: Patient was seen quickly before going to CT. Const Vital Signs: 10/27/20 18:24 10/27/20 18:29 10/27/20 18:38 Temperature 98 F Temperature Source Temporal Pulse Rate 88 84 Respiratory Rate 16 16 Blood Pressure 126/62 H 126/62 H Blood Pressure Mean 83 83 Pulse Ox 97 99 99 Oxygen Delivery Method Room Air Room Air Room Air 10/27/20 18:59 10/27/20 19:20 10/27/20 19:59 Temperature Temperature Source Pulse Rate 75 81 79 Respiratory Rate 16 16 15 Blood Pressure 129/99 H 127/73 H 127/53 H Blood Pressure Mean 109 91 77 Pulse Ox 99 97 99 Oxygen Delivery Method Room Air Room Air Room Air 10/27/20 20:00 Temperature Temperature Source Pulse Rate 77 Respiratory Rate 15 Blood Pressure 127/53 H Blood Pressure Mean 77 Pulse Ox 99 Oxygen Delivery Method Room Air Positive well nourished and well developed Constitutional Narrative: Patient is smiling awake alert and conversant. She has significant craniotomy defect on the right side. General Appearance ED: well developed and NAD HEENT Nose: other Other Details: Patient wears a helmet. She had recent craniotomy on the right that looks well-healed. Eyes PERRL Eyes Narrative: Visual acuity is decreased more on the right than the left. This is due to what sounds like a retinal hemorrhage from thrombocytopenia. It is improving though. Chest Wall Chest Narrative: Patient has catheter in the right chest that looks clean. Resp normal respiratory effort Cardio Rate: regular rate Rhythm: regular rhythm GI normal to inspection, nondistended, normoactive bowel sounds, soft to palpation and non-tender Back/Spine Negative for no CVA tenderness Extremity normal to inspection General Extremety ED: Negative for tenderness Neuro Neuro Narrative: Patient has mild expressive aphasia, mild left facial weakness showing an NIH of 2. She missed orientation question for a total of 3. However, the facial weakness is not new. The aphasia is extremely subtle and has been waxing and waning. Sensorium / Orientation: alert Skin Lesions: no lesions Rashes: no rashes STROKE Vital Signs/Narrative: Vital Signs Pulse Resp BP Pulse Ox 10/27/20 20:00 77 15 127/53 H 99 10/27/20 19:59 79 15 127/53 H 99 MDM MDM MDM Narrative Medical decision making narrative: Telestroke agrees that this is not something that would be appropriate for TPA. She is improved from her start today. And these are symptoms that she has had ever since the surgery. They were slowly improving but today they got a little bit of a setback that is now getting better again. The concern is that the CT is being read as a possible area of punctate hemorrhage. We are waiting further blood work. I have [facility] transmission and protection engineer because I think this patient is relatively acute postop with new or changed neurologic symptoms and a questionable CT. I discussed the case with Dr. Bejaranod her on for neurosurgery at [facility]. They will accept in transfer. They recommended that if the patient gets worse or has further symptoms we may consider Keppra. Otherwise we will hold off on Keppra as they plan to do EEG screening when the patient arrives. Lab Data Labs: Laboratory Results - last 24 hr 10/27/20 10/27/20 10/27/20 18:40 19:00 19:00 WBC 7.3 RBC 2.86 L Hgb 8.5 L Hct 27.6 L MCV 96.5 MCH 29.7 MCHC 30.8 L RDW Std Deviation 57.2 H RDW Coeff of Andrea 16.5 H Plt Count 268 MPV 9.3 Immature Gran % (Auto) 0.800 Neut % (Auto) 70.6 H Lymph % (Auto) 16.3 L Door % (Auto) 10.2 H Eos % (Auto) 1.4 Baso % (Auto) 0.7 Absolute Neuts (auto) 5.1 Absolute Lymphs (auto) 1.18 Nucleated RBC % 0 PT 14.4 INR 1.2 APTT 32.9 Sodium Potassium Chloride Carbon Dioxide Anion Gap BUN Creatinine Estim Creat Clear Calc Est GFR (MDRD) Af Amer Est GFR (MDRD) Non-Af BUN/Creatinine Ratio Glucose Calcium Troponin I High Sens POC Glucose 101 10/27/20 19:00 WBC RBC Hgb Hct MCV MCH MCHC RDW Std Deviation RDW Coeff of Andrea Plt Count MPV Immature Gran % (Auto) Neut % (Auto) Lymph % (Auto) Door % (Auto) Eos % (Auto) Baso % (Auto) Absolute Neuts (auto) Absolute Lymphs (auto) Nucleated RBC % PT INR APTT Sodium 138 Potassium 3.6 Chloride 105 Carbon Dioxide 26.0 Anion Gap 7 BUN 5 L Creatinine 0.55 Estim Creat Clear Calc 149.20 Est GFR (MDRD) Af Amer 161 Est GFR (MDRD) Non-Af 133 BUN/Creatinine Ratio 9.1 L Glucose 98 Calcium 9.1 Troponin I High Sens 11.6 POC Glucose Radiography Diagnostic Testing: Radiology Impression Brain CT 10/27/20 18:29 IMPRESSION: Postsurgical changes from a right frontal craniectomy. There are punctate foci creased density in the posterior right temporal lobe as well as areas of decreased density. Is uncertain whether these are tiny punctate hemorrhages normal brain with associated infarct. Further evaluation with MRI may be beneficial. Individualized dose optimization techniques were used for this CT. at 1843 Reported and signed by: Johnson Ambrocio MD Electronically Signed: Johnson Ambrocio MD at 18:42 EDT Tel , Service support , ADDENDUM: 10/27/20 1853 IMPRESSION: Postsurgical changes from a right frontal craniectomy. There are punctate foci creased density in the posterior right temporal lobe as well as areas of decreased density. Is uncertain whether these are tiny punctate hemorrhages normal brain with associated infarct. Further evaluation with MRI may be beneficial. Individualized dose optimization techniques were used for this CT. at 1843 Reported and signed by: Johnson Ambrocio MD N.B. : The above Results were Read Back by Johnson Ambrocio MD to JUNIOR MCCORD MD, and understanding confirmed on 10/27/2020 18:46:32 (ET). Electronically Signed: Johnson Ambrocio MD at 18:42 EDT Tel , Service support , Chest X-Ray 10/27/20 19:05 IMPRESSION: 1. No acute pulmonary abnormality. 2. Right central venous catheter in good position. at 1933 Reported and signed by: Johnson Ambrocio MD Electronically Signed: Johnson Ambrocio MD at 19:32 EDT Tel , Service support , Critical Care Time Critical Care Time: Yes Critical care time (excluding procedures): 30-74 minutes and - (Patient was seen acutely when she came in. I have had multiple evaluations with her in discussions with her and her . Discussed case at the bedside during telestroke neurology eval. Discussed case with consultants at [facility]. Reviewed results. Arrange transfer. This patient has) Discharge Plan Triage Chief Complaint: Numb/Ting ED Provider: Junior Mccord Dx/Rx/DC Orders Clinical Impression: Transient neurologic deficit, Intracranial bleed, History of leukemia Prescriptions: No Action gabapentin 100 mg Capsule 100 mg PO QHS Qty: 21 RF: 0 simethicone [Mi-Acid Gas Relief(simethicon)] 80 mg Tablet,Chewable 80 mg PO TID PRN PRN (Reason: gas) Qty: 30 RF: 0 acetaminophen [Tylenol] 325 mg Tablet 650 mg PO Q6H PRN PRN (Reason: Pain Score 1-10) Qty: 0 RF: 0 baclofen 10 mg Tablet 5 mg PO Q8H PRN PRN (Reason: muscles spasms) Qty: 14 RF: 0 carvedilol 25 mg Tablet 25 mg PO BID Qty: 60 RF: 0 ondansetron HCl 8 mg Tablet 8 mg PO Q8H PRN (Reason: Nausea) Qty: 28 RF: 0 melatonin 3 mg Tablet 3 mg PO QHS Qty: 30 RF: 0 acyclovir 400 mg Tablet 400 mg PO BID Qty: 60 RF: 0 pantoprazole 40 mg Tablet,Delayed Release (Dr/Ec) 40 mg PO DAILY Qty: 0 RF: 0 lisinopril 40 mg Tablet 40 mg PO DAILY Qty: 30 RF: 0 oxycodone 5 mg Tablet 5 mg PO Q4H PRN (Reason: Pain 4-10) 7 Days Qty: 28 RF: 0 Rydapt 25 mg Capsule 50 mg PO Q12H Qty: 0 RF: 0 clotrimazole 10 mg gabino 10 mg mucous membrane TID Qty: 21 RF: 0 Primary Care Provider: [facility] Aixa Guillen Referrals: [facility] Wilmer,Aixa Zepeda [Primary Care Provider] - Disposition Disposition: Acute Care Hospital Discharge Location: [facility] Discharge Date/Time: 10/27/20 20:49
[2020-10-27 18:46] LABS: Bedside Glucose 101 mg/dL (70-110)
--- NOTE | 2020-10-27 19:05 | RAD_ITS ---
EXAM: XR CHEST, 1 VIEW : 1985 CLINICAL INDICATION: Neuro deficit, acute, stroke suspected TECHNIQUE: Frontal view of the chest. This report was created using [employer] report generation technology. COMPARISON: 08/13/2020 FINDINGS: LUNGS AND PLEURAL SPACES: Unremarkable. No consolidation or edema. No pneumothorax. No effusion. HEART: Unremarkable. Cardiac silhouette not enlarged. MEDIASTINUM: Central airways and mediastinal contour are unremarkable. BONES/JOINTS: Unremarkable. SOFT TISSUES: Unremarkable. TUBES, LINES AND DEVICES: Right central venous catheter is in place with the distal tip overlying the superior vena cava. RAD/Chest 1 View IMPRESSION: 1. No acute pulmonary abnormality. 2. Right central venous catheter in good position. at 1933 Reported and signed by: Johnson Ambrocio MD Electronically Signed: Johnson Ambrocio MD at 19:32 EDT Tel , Service support ,
[2020-10-27 19:19] LABS: Absolute Lymphocyte Count 1.18 X10^3/uL (0.83-4.51); Absolute Neutrophil Count 5.1 X10^3/uL (2.0-7.7); Basophil# 0.05 X10^3/uL; Basophil% 0.7 % (0-1); Eosinophils% 1.4 % (0-5); Hematocrit 27.6 % (37-47); Hemoglobin 8.5 g/dL (12.0-15.0); Lymphocyte # 1.18 X10^3/ul (0.83-4.51); Lymphocyte % 16.3 % (19-41); Mean Corp Hgb Conc 30.8 g/dL (32-36); Mean Corpuscular Hgb 29.7 pg (27.0-32.0); Mean Corpuscular Volume 96.5 fL (81-99); Mean Platelet Vol. 9.3 fl (6.2-12.0); Monocyte# 0.74 X10^3/uL; Monocyte% 10.2 % (0-10); NRBC Flagged by Analyzer 0 % (0-5); Neutrophil # 5.13 X10^3/uL (2.7-7.7); Neutrophil % 70.6 % (47-70); Platelet Count 268 K/mm3 (150-450); RBC Distribution Width CV 16.5 % (11.6-14.6); RBC Distribution Width SD 57.2 fl (35.1-43.9); Red Blood Count 2.86 M/mm3 (4.2-5.4); White Blood Count 7.3 K/mm3 (4.4-11.0)
[2020-10-27 19:26] LABS: International Normalized Ratio 1.2; Prothrombin Time (Protime)PT. 14.4 SECONDS (11.7-14.9)
[2020-10-27 19:27] LABS: Partial Thromboplast Time 32.9 Seconds (24.1-36.2)
[2020-10-27 19:47] LABS: Anion Gap 7 (5-15); BUN 5 mg/dL (7-18); BUN/Creat Ratio 9.1 RATIO (10-20); Calcium,Total 9.1 mg/dL (8.5-10.1); Chloride 105 mmol/L (98-107); Creatinine, Serum 0.55 mg/dL (0.55-1.02); EST Glomerular Filtration Rate 133 mL/min (>60); Est Glom Filt Rate - Afr Amer 161 mL/min (>60); Glucose 98 mg/dL (74-106); Potassium 3.6 mmol/L (3.5-5.1); Sodium Level 138 mmol/L (136-145); Troponin-I HS 11.6 pg/mL (3.0-53.7)
--- NOTE | 2020-10-27 20:45 | NURSING ---
Addendum entered by Marisol Bryant 10/27/20 22:43: nurse to nurse report given. Original Note: attempted to call report twice, no answer
== END 2020-10-27 20:49 | disposition short-term general hospital (02) ==
PROVIDERS: Emergency Provider Emergency Medicine
DX: I61.9 Nontraumatic intracerebral hemorrhage, unspecified (principal); R47.01 Aphasia; R29.810 Facial weakness; Z85.6 Personal history of leukemia; Z86.2 Personal history of diseases of the blood and blood-forming organs and certain disorders involving the immune mechanism; Z98.890 Other specified postprocedural states; Z87.442 Personal history of urinary calculi; Z86.73 Personal history of transient ischemic attack (TIA), and cerebral infarction without residual deficits; Z79.899 Other long term (current) drug therapy
CPT/HCPCS: 70450; 71045; 80048; 82962; 84484; 85025; 85610; 85730; 93005; 99285; A4216

== ENCOUNTER 2020-12-01 15:09 | Outpatient (RCR) | payer OTHER, SELFPAY ==
[2020-10-27 18:24] VITALS: BMI 26.6
[2020-11-24 13:35] LABS: Hematocrit 34.9 % (37-47); Hemoglobin 11.1 g/dL (12.0-15.0); Mean Corp Hgb Conc 31.8 g/dL (32-36); Mean Corpuscular Hgb 30.3 pg (27.0-32.0); Mean Corpuscular Volume 95.4 fL (81-99); Platelet Count 212 K/mm3 (150-450); RBC Distribution Width CV 14.3 % (11.6-14.6); RBC Distribution Width SD 50.3 fl (35.1-43.9); Red Blood Count 3.66 M/mm3 (4.2-5.4); White Blood Count 4.2 K/mm3 (4.4-11.0)
[2020-11-24 13:43] LABS: AST(SGOT) 10 U/L (15-37); Alanine Aminotransfer ALT/SGPT 18 U/L (13-56); Albumin, Serum 3.9 g/dL (3.2-5.0); Alkaline Phosphatase 65 U/L (45-117); Anion Gap 5 (5-15); BUN 9 mg/dL (7-18); BUN/Creat Ratio 14.2 RATIO (10-20); Calcium,Total 9.9 mg/dL (8.5-10.1); Chloride 103 mmol/L (98-107); Creatinine, Serum 0.64 mg/dL (0.55-1.02); EST Glomerular Filtration Rate 113 mL/min (>60); Est Glom Filt Rate - Afr Amer 136 mL/min (>60); Globulin 4.1 g/dL (2.2-4.2); Glucose 87 mg/dL (74-106); Potassium 3.5 mmol/L (3.5-5.1); Sodium Level 139 mmol/L (136-145)
[2020-12-01 15:58] LABS: Hematocrit 37.2 % (37-47); Hemoglobin 11.6 g/dL (12.0-15.0); Mean Corp Hgb Conc 31.2 g/dL (32-36); Mean Corpuscular Hgb 30.4 pg (27.0-32.0); Mean Corpuscular Volume 97.6 fL (81-99); Mean Platelet Vol. 10.5 fl (6.2-12.0); Platelet Count 175 K/mm3 (150-450); RBC Distribution Width CV 14.3 % (11.6-14.6); Red Blood Count 3.81 M/mm3 (4.2-5.4); White Blood Count 4.7 K/mm3 (4.4-11.0)
[2020-12-01 16:17] LABS: ALB/GLOB Ratio 0.9 RATIO (0.9-2.4); AST(SGOT) 20 U/L (15-37); Alanine Aminotransfer ALT/SGPT 20 U/L (13-56); Albumin, Serum 4.2 g/dL (3.2-5.0); Alkaline Phosphatase 70 U/L (45-117); Anion Gap 9 (5-15); BUN 8 mg/dL (7-18); BUN/Creat Ratio 11.9 RATIO (10-20); Chloride 102 mmol/L (98-107); Creatinine, Serum 0.67 mg/dL (0.55-1.02); EST Glomerular Filtration Rate 106 mL/min (>60); Est Glom Filt Rate - Afr Amer 128 mL/min (>60); Globulin 4.7 g/dL (2.2-4.2); Potassium 3.5 mmol/L (3.5-5.1); Protein, Total 8.9 g/dL (6.4-8.2); Sodium Level 137 mmol/L (136-145)
[2020-12-01 17:59] LABS: Glucose 40 mg/dL (74-106)
== END 2020-12-01 18:00 | disposition home or self-care (01) ==
LOC: HHLAB 15:09
PROVIDERS: Referring Provider Nurse Practitioner Family; Visit Provider Nurse Practitioner Family
DX: C92.00 Acute myeloblastic leukemia, not having achieved remission (principal)
CPT/HCPCS: 80053; 85027